=== PATIENT | female | born 1960 | race Caucasian/White ===

== ENCOUNTER → 2018-04-22 08:35 | Outpatient (CLI) | payer OTHER, SELFPAY ==
[2018-04-22 09:06] LABS: Add Manual Diff / Slide Review NO; Basophils Percent Auto 1.5 % (0-2); Eosinophils Percent Auto 3.3 % (2-4); Hematocrit 37.7 % (36-46); Hemoglobin 12.9 g/dL (12.0-16.0); Mean Corpuscular HGB Conc 34.3 % (30-36); Mean Corpuscular Hemoglobin 29.6 PG (26-34); Mean Corpuscular Volume 86.2 fL (80-100); Monocytes Percent Auto 9.4 % (3-14); Neutrophils Absolute Auto 2400 /uL (3000-5900); Neutrophils Percent Auto 42.8 % (50-75); Platelet Count 220 X10^3/uL (150-400); Red Blood Cell Count 4.37 X10^6/uL (4.0-5.2); Red Cell Distribution Width 13.7 % (11.6-14.8); White Blood Cell Count 5.6 X10^3/uL (4.5-11.0)
[2018-04-22 09:25] LABS: BUN Creatinine Ratio 17.5 (6-22); Blood Urea Nitrogen 14 mg/dL (7-17); Calcium 9.5 mg/dL (8.4-10.2); Carbon Dioxide 32 mmol/L (22-32); Chloride 105 mmol/L (98-107); Cholesterol 217 mg/dL (140-199); Estimated Glomerular Filt Rate > 60.0 mL/min (>60); Glucose 93 mg/dL (70-100); HDL Cholesterol 68 mg/dL (40-60); HEMOLYSIS < 15 (0-50); LDL Cholesterol Calculated 129 mg/dL (<100); Potassium 4.3 mmol/L (3.4-5.1); Sodium 144 mmol/L (137-145); Triglycerides 98 mg/dL (35-150)
[2018-04-22 16:10] LABS: TSH w/ Reflex to FT4 4.28 uIU/mL (0.47-4.68)
== END ==
PROVIDERS: PCP Internal Medicine; Visit Provider Internal Medicine
DX: Z00.00 Encounter for general adult medical examination without abnormal findings (principal); D50.9 Iron deficiency anemia, unspecified; E03.9 Hypothyroidism, unspecified
CPT/HCPCS: 36415; 80048; 80061; 84443; 85025

== ENCOUNTER 2018-06-17 09:57 | Day surgery (SDC) | payer OTHER, SELFPAY ==
[2018-06-13 09:50] VITALS: BMI 22.9
--- NOTE | 2018-06-17 | PATH_ITS ---
[facility] Accession Number: [id number] . 01 Material submitted: . PART A: LEEP EXTERNAL 12 O'CLOCK PART B: LEEP INTERNAL PART C: ENDOCERVICAL . 01 Clinical history: . A. 12 O'CLOCK SUTURE (PER CONTAINER) . 02 Diagnosis: A. Cervix, LEEP External 12 o'clock: Endocervical tissue with changes consistent with previous instrumentation. Negative for dysplasia and malignancy. Margins are negative for dysplasia and malignancy. No well-preserved transformation zone identified; tissue disruption is present. . B. Cervix, LEEP Internal: Endocervical tissue with changes consistent with previous instrumentation. Negative for dysplasia and malignancy. Margins are negative for dysplasia and malignancy. No well-preserved transformation zone identified; tissue disruption is present. . C. Endocervical: Endocervical glandular epithleium; negative for glandular dysplasia and malignancy. MRV/06/20/2018 . 02 Comment: This patient's previous biopsy ([facility] [id number], 05/04/2018) is reviewed and the severely dysplastic cells present in the previous biopsy are not identified in the current biopsy tissue. . 02 Electronically signed: . Juanis Akhtar MD, Pathologist NPI- [id number] . 01 Gross description: . (A) Received in formalin, labeled LEEP external 12 o'clock suture, is a cervical LEEP biopsy (1.9 cm 12 o'clock to 6 o'clock, 2.1 cm 3 o'clock to 9 o'clock, 1.2 cm superficial to deep) oriented with a two-tailed black suture indicating 12 o'clock. The mucosa is bright pink and focally red-brown, smooth and shiny. The resection margin is pale bess and finely granular. No nodules, masses or lesions are identified. Ink code: black-deep; blue-lateral; orange-os/endocervical canal. Section code: radially sectioned and entirely submitted clockwise from 12 o'clock -(A1) 12 o'clock to 3 o'clock; (A2) 3 o'clock to 6 o'clock; (A3) 6 o'clock to 9 o'clock; (A4) 9 o'clock to 12 o'clock). (B) Received in formalin, labeled LEEP internal is an unoriented cervical LEEP biopsy (diameter-1.5 x 1.3 cm, superficial to deep-0.7 cm) with bess-pink smooth shiny mucosa and a pale bess finely granular resection margin. No nodules, masses or lesions are identified. Ink code: black-deep; blue-lateral; orange-os/endocervical canal. Radially sectioned and entirely submitted in cassettes B1-B2. (C) Received in formalin, labeled endocervical, are multiple fragments of red-brown tissue (1.5 x 0.9 x 0.1 cm in aggregate). Filtered and entirely submitted in cassette C1. ([id number]) /MRV . 02 Pathologist provided ICD-10: N87.1 . 02 CPT . 162335, 367162, 067531 Performed at: 01 [facility] [address] [id number] MD Aristides Daugherty MD Phone: [phone] Performed at: 02 [facility] [address] [place] [id number] MD Sharda Sorensen MD Phone: [phone]
[2018-06-17 10:19] VITALS: BP 101/68; PULSE 68; RESP 15; TEMP 36.7; O2SAT 99; BMI 23.4
[2018-06-17] MEDS: LACTATED RINGERS 1,000 ML 100 ML IV (10:33)
--- NOTE | 2018-06-17 11:20 | PM.PREOP ---
Pre-operative Note Interval Note Pre-op Check: Yes History & Physical Reviewed by Physician and Yes Exam Performed Changes: No
--- NOTE | 2018-06-17 11:26 | P.HPOB_ITS ---
History of Present Illness Reason for admission: other (FANY 2 of the cervix) Narrative: Kristina Ahn is a 57 year old female with FANY 2 of the cervix here for colposcopy [facility] Medical History Anxiety and depression (Acute) Herpes labialis (Acute) Hypothyroidism (Acute) Iron deficiency anemia (Acute) Retinal detachment (Acute ~1993) Retinal detachment (Acute ~1984) Surgical History History of photorefractive keratectomy (PRK) (Acute ~1992) History of surgical removal of ganglion cyst (Acute ~2014) S/P endometrial ablation (Acute ~2009) Social History household members: none Smoking Status: Never smoker alcohol intake: current Meds Home Medications Medication Instructions Recorded Confirmed Type ascorbate calcium 500 mg tablet 1 gram PO Q6H 05/03/18 06/17/18 History citalopram 10 mg tablet 10 mg PO DAILY 05/03/18 06/17/18 History levothyroxine 25 mcg tablet 0.088 mcg PO DAILY tab 05/03/18 06/17/18 History cholecalciferol (vitamin D3) 1,000 unit PO DAILY 06/17/18 06/17/18 History [Vitamin D3] Allergies Allergy/AdvReac Type Severity Reaction Status Date / Time No Known Drug Allergies Allergy Verified 06/17/18 10:11 Review of Systems Review of Systems All systems reviewed & are unremarkable except as noted in HPI and below Exam Vital Signs (past 8 hours): - 06/17/18 10:19 Temperature 98.1 F Pulse Rate 68 Respiratory Rate 15 Blood Pressure 101/68 Pulse Oximetry 99 Oxygen Delivery Method Room Air Narrative Exam Narrative: HEENT exam within normal limits. Lungs are clear to auscultation and percussion. Heart is regular rate and rhythm no S3-S4 or murmurs. Abdomen is soft nontender. Repeat pelvic exam was not performed today but normal external genitalia, vagina, cervix. Uterus was not enlarged, nontender no adnexal masses or tenderness at her previous exam. Extremities without edema. Assessment & Plan (1) FANY II (cervical intraepithelial neoplasia II): Current visit: Yes Status: Acute Plan: Assessment/Plan Narrative: Patient is to undergo a LEEP procedure. She had signed a consent form prior understands the risks are minimal. Bleeding, pain, infection. Time Spent With Patient Time with patient: less than 15 minutes
[2018-06-17 11:42] VITALS: BMI 23.4
[2018-06-17 11:43] VITALS: BMI 23.4
--- NOTE | 2018-06-17 11:55 | SUR.OPER ---
Lithotomy on padded OR bed, head on pillow, arms secured on padded arm boards at <90 degrees abduction. Legs secured in padded yellow fins stirrups.
[2018-06-17] MEDS: POTASSIUM IODIDE/IODINE 473 ML SOLUTION TOP (12:05)
[2018-06-17] MEDS: LIDOCAINE 1% W/EPI INJ 20 ML INJ (12:05)
[2018-06-17 12:17] VITALS: BP 96/50; PULSE 77; RESP 15; TEMP 36.2; O2SAT 100
--- NOTE | 2018-06-17 12:17 | PM.OP.1 ---
Operative Date/Time/Diagnoses Date of procedure: 06/17/18 Time of procedure: 12:17 Pre-op diagnosis: FANY 2 of the cervix Post-op diagnosis: same Procedure & Clinicians Procedure: LEEP procedure with ECC Same procedure as scheduled: Yes Indications: FANY 2 of the cervix Surgeon: Trinidad Dover Click Yes if Unassisted: Yes Anesthesia Type: General Operative Notes Findings: Normal exam under anesthesia. There was no areas of nonstaining with Lugol's. Closure Type: not applicable Specimen(s): other (External LEEP biopsy, internal LEEP and ECC) Estimated Blood Loss (mL): 5 Blood products transfused: none Procedure in detail: Patient was brought to the operating room where she underwent general anesthesia. She was placed in low Yellofin stirrups and prepped and draped in the usual sterile fashion. A check system was reviewed with the staff in the room. Hi filter mass were worn by the staff in the room. No antibiotics were indicated. Warming was with blankets. Pulsatile stockings were in place and functional. A coated speculum was placed in the vagina. Lugol's was placed on the cervix. No staining was seen. The LEEP sent at 60 w of cutting and 40 w of coag was used to remove the entire squamocolumnar junction externally and then a deep section. The 12 o'clock position of the external LEEP was marked with a suture. ECC was performed. The cervix was treated with coagulation even outside of the LEEP margin. Adequate hemostasis was noted. Monsel's was placed at the LEEP base. Counts of instruments and sponges were correct. Patient went to recovery room in good condition. Complications: none Condition: stable Disposition: same day surgery Plan for aftercare: Home when awake and stable. Follow-up will be based on pathology report
[2018-06-17 12:21] VITALS: BP 98/48; PULSE 80; RESP 14; O2SAT 97
[2018-06-17 12:26] VITALS: BP 103/54; PULSE 80; RESP 12; O2SAT 99
[2018-06-17 12:31] VITALS: BP 116/65; PULSE 82; RESP 14; TEMP 36; O2SAT 99
--- NOTE | 2018-06-17 12:35 | SUR.PHASEI ---
Frequent questions, many repetitive.
[2018-06-17 12:45] VITALS: BP 119/75; PULSE 76; RESP 15; TEMP 36.4; O2SAT 95
--- NOTE | 2018-06-17 13:51 | SUR.PHASEII ---
iv dc'd by nicolás still
== END 2018-06-17 12:55 | disposition home or self-care (01) ==
PROVIDERS: Family Provider Internal Medicine; PCP Internal Medicine; Visit Provider Specialist
PROC: 0UBC7ZZ Excision of Cervix, Via Natural or Artificial Opening (ICD-10-PCS; CPT 57522; principal; 2018-06-17 11:15)
DX: F41.9 Anxiety disorder, unspecified (principal); F33.41 Major depressive disorder, recurrent, in partial remission; E03.9 Hypothyroidism, unspecified; D64.9 Anemia, unspecified
CPT/HCPCS: 57522; J1100; J1885; J2250; J2405; J2704; J3010

== ENCOUNTER → 2018-08-26 12:25 | Outpatient (CLI) | payer OTHER, SELFPAY ==
--- NOTE | 2018-08-26 | DI.MG.S_ITS ---
BILATERAL DIGITAL SCREENING MAMMOGRAM 3D/2D WITH CAD: 08/26/2018 CLINICAL: Routine screening. Family history of breast cancer. Comparison is made to exams dated: 07/28/2017 mammogram - [facility], 05/24/2015 mammogram, and 06/23/2016 mammogram - [facility]. There are scattered fibroglandular elements in both breasts. Current study was also evaluated with a Computer Aided Detection (CAD) system. No significant masses, calcifications, or other findings are seen in either breast. There has been no significant interval change. IMPRESSION: NEGATIVE There is no mammographic evidence of malignancy. A 1 year screening mammogram is recommended. This exam was interpreted at Station ID: [id number]. NOTE: For mammograms, a report in lay terms will be sent to the patient. Approximately 15% of breast malignancies will not be visualized mammographically. In the management of a palpable breast mass, a negative mammogram must not discourage biopsy of a clinically suspicious lesion. Electronically Signed By: Yaquelin mattson/edson:08/26/2018 15:11:49 letter sent: Normal Exam ACR BI-RADS Category 1: Negative 3341F
== END ==
PROVIDERS: PCP Internal Medicine; Visit Provider Internal Medicine
DX: Z12.31 Encounter for screening mammogram for malignant neoplasm of breast (principal); Z80.3 Family history of malignant neoplasm of breast
CPT/HCPCS: 77063; 77067

== ENCOUNTER → 2019-04-14 09:58 | Outpatient (CLI) | payer OTHER, SELFPAY ==
[2019-04-14 11:48] LABS: BUN Creatinine Ratio 16.3 (6-22); Blood Urea Nitrogen 13 mg/dL (7-17); Calcium 9.5 mg/dL (8.4-10.2); Carbon Dioxide 29 mmol/L (22-32); Chloride 103 mmol/L (98-107); Cholesterol 214 mg/dL (140-199); Estimated Glomerular Filt Rate > 60.0 mL/min (>60); Glucose 92 mg/dL (70-100); HDL Cholesterol 69 mg/dL (40-60); HEMOLYSIS < 15 (0-50); LDL Cholesterol Calculated 125 mg/dL (<100); Potassium 4.4 mmol/L (3.4-5.1); Sodium 140 mmol/L (137-145); Triglycerides 100 mg/dL (35-150)
[2019-04-14 12:42] LABS: TSH w/ Reflex to FT4 3.89 uIU/mL (0.47-4.68)
== END ==
PROVIDERS: PCP Internal Medicine; Visit Provider Internal Medicine
DX: Z00.00 Encounter for general adult medical examination without abnormal findings (principal); E78.5 Hyperlipidemia, unspecified; E03.9 Hypothyroidism, unspecified
CPT/HCPCS: 36415; 80048; 80061; 84443

== ENCOUNTER → 2019-09-18 11:38 | Outpatient (CLI) | payer OTHER, SELFPAY ==
--- NOTE | 2019-09-18 | DI.MG.S_ITS ---
BILATERAL DIGITAL SCREENING MAMMOGRAM 3D/2D WITH CAD: 09/18/2019 CLINICAL: Routine screening. Family history of breast cancer. Comparison is made to exams dated: 08/26/2018 mammogram, 07/28/2017 mammogram - [facility], and 06/23/2016 mammogram - [facility]. There are scattered fibroglandular elements in both breasts. Current study was also evaluated with a Computer Aided Detection (CAD) system. No significant masses, calcifications, or other findings are seen in either breast. There has been no significant interval change. IMPRESSION: NEGATIVE There is no mammographic evidence of malignancy. A 1 year screening mammogram is recommended. This exam was interpreted at Station ID: [id number]. NOTE: For mammograms, a report in lay terms will be sent to the patient. Approximately 15% of breast malignancies will not be visualized mammographically. In the management of a palpable breast mass, a negative mammogram must not discourage biopsy of a clinically suspicious lesion. Electronically Signed By: Yaquelin mattson/edson:09/18/2019 17:03:29 letter sent: Normal Exam ACR BI-RADS Category 1: Negative 3341F
== END ==
PROVIDERS: PCP Internal Medicine; Referring Provider Internal Medicine; Visit Provider Internal Medicine
DX: Z12.31 Encounter for screening mammogram for malignant neoplasm of breast (principal); Z80.3 Family history of malignant neoplasm of breast
CPT/HCPCS: 77063; 77067

== ENCOUNTER → 2020-09-03 20:01 | Outpatient (ROUT) | payer OTHER, SELFPAY ==
[2020-09-03 20:14] LABS: Alanine Aminotransferase 19 IU/L (<35); Albumin 4.5 g/dL (3.5-5.0); Albumin Globulin Ratio 1.7 (1.0-2.8); Alkaline Phosphatase 65 U/L (38-126); Aspartate Aminotransferase 43 IU/L (14-36); BUN Creatinine Ratio 15.4 (6-22); Bilirubin Total 0.5 mg/dL (0.2-1.3); Blood Urea Nitrogen 12 mg/dL (7-17); Calcium 9.7 mg/dL (8.4-10.2); Carbon Dioxide 29 mmol/L (22-32); Chloride 104 mmol/L (98-107); Cholesterol 236 mg/dL (140-199); Estimated Glomerular Filt Rate > 60.0 mL/min (>60); Globulin 2.7 g/dL (1.7-4.1); Glucose 95 mg/dL (70-100); HDL Cholesterol 70 mg/dL (40-60); HEMOLYSIS < 15 (0-50); LDL Cholesterol Calculated 134 mg/dL (<100); Potassium 4.2 mmol/L (3.4-5.1); Sodium 138 mmol/L (137-145); Total Protein 7.2 g/dL (6.3-8.2); Triglycerides 158 mg/dL (35-150)
[2020-09-03 20:43] LABS: TSH w/ Reflex to FT4 2.76 uIU/mL (0.47-4.68)
== END ==
PROVIDERS: PCP Internal Medicine; Visit Provider Internal Medicine
DX: Z00.00 Encounter for general adult medical examination without abnormal findings (principal); E03.9 Hypothyroidism, unspecified
CPT/HCPCS: 80053; 80061; 84443

== ENCOUNTER → 2020-09-18 11:17 | Outpatient (CLI) | payer OTHER, SELFPAY ==
--- NOTE | 2020-09-18 11:18 | DI.MG.S_ITS ---
BILATERAL DIGITAL SCREENING MAMMOGRAM 3D/2D WITH CAD: 09/18/2020 CLINICAL: Routine screening. Family history of breast cancer. Comparison is made to exams dated: 09/18/2019 mammogram, 08/26/2018 mammogram, and 07/28/2017 mammogram - [facility]. There are scattered fibroglandular elements in both breasts. Current study was also evaluated with a Computer Aided Detection (CAD) system. No significant masses, calcifications, or other findings are seen in either breast. There has been no significant interval change. IMPRESSION: NEGATIVE There is no mammographic evidence of malignancy. A 1 year screening mammogram is recommended. This exam was interpreted at Station ID: [id number]. NOTE: For mammograms, a report in lay terms will be sent to the patient. Approximately 15% of breast malignancies will not be visualized mammographically. In the management of a palpable breast mass, a negative mammogram must not discourage biopsy of a clinically suspicious lesion. Electronically Signed By: Samanta vazquez/edson:09/18/2020 14:36:11 letter sent: Normal Exam ACR BI-RADS Category 1: Negative 3341F
== END ==
PROVIDERS: PCP Internal Medicine; Referring Provider Internal Medicine; Visit Provider Internal Medicine
DX: Z12.31 Encounter for screening mammogram for malignant neoplasm of breast (principal)
CPT/HCPCS: 77063; 77067

== ENCOUNTER → 2021-10-01 11:25 | Outpatient (CLI) | payer OTHER, SELFPAY ==
--- NOTE | 2021-10-01 | DI.MG.S_ITS ---
BILATERAL DIGITAL SCREENING MAMMOGRAM 3D/2D WITH CAD: 10/01/2021 CLINICAL: Routine screening. Family history of breast cancer. Comparison is made to exams dated: 09/18/2020 mammogram, 09/18/2019 mammogram, 08/26/2018 mammogram, and 07/28/2017 mammogram - [facility]. There are scattered fibroglandular elements in both breasts. Current study was also evaluated with a Computer Aided Detection (CAD) system. No significant masses, calcifications, or other findings are seen in either breast. There has been no significant interval change. IMPRESSION: NEGATIVE There is no mammographic evidence of malignancy. A 1 year screening mammogram is recommended. This exam was interpreted at Station ID: [id number]. NOTE: For mammograms, a report in lay terms will be sent to the patient. Approximately 15% of breast malignancies will not be visualized mammographically. In the management of a palpable breast mass, a negative mammogram must not discourage biopsy of a clinically suspicious lesion. Electronically Signed By: Stephan murcia/edson:10/01/2021 13:42:07 letter sent: Normal Exam ACR BI-RADS Category 1: Negative 3341F
== END ==
PROVIDERS: PCP Internal Medicine; Referring Provider Internal Medicine; Visit Provider Internal Medicine
DX: Z12.31 Encounter for screening mammogram for malignant neoplasm of breast (principal); Z80.3 Family history of malignant neoplasm of breast
CPT/HCPCS: 77063; 77067

== ENCOUNTER → 2022-10-08 12:06 | Outpatient (CLI) | payer OTHER, SELFPAY ==
--- NOTE | 2022-10-08 12:08 | DI.MG.S_ITS ---
BILATERAL DIGITAL SCREENING MAMMOGRAM 3D/2D WITH CAD: 10/08/2022 CLINICAL: Routine screening. Family history of breast cancer. Comparison is made to exams dated: 10/01/2021 mammogram, 09/18/2020 mammogram, and 09/18/2019 mammogram - [facility]. There are scattered areas of fibroglandular density in both breasts (category b / 25%-50% glandular tissue). Current study was also evaluated with a Computer Aided Detection (CAD) system. There are benign calcifications in both breasts. No significant masses, calcifications, or other findings are seen in either breast. There has been no significant interval change. IMPRESSION: BENIGN There is no mammographic evidence of malignancy. A 1 year screening mammogram is recommended. Based on the Tyrer Cuzick model (a risk assessment model) the patient's lifetime risk is 18.2% and her 10 year risk is 7.8%. According to the ACR, ACS, and NCCN guidelines, an annual breast MRI exam along with mammogram is recommended if the patient's lifetime risk is 20% or greater. This exam was interpreted at Station ID: [id number]. NOTE: For mammograms, a report in lay terms will be sent to the patient. Approximately 15% of breast malignancies will not be visualized mammographically. In the management of a palpable breast mass, a negative mammogram must not discourage biopsy of a clinically suspicious lesion. Electronically Signed By: Wilfredo menendez/edson:10/08/2022 16:01:30 letter sent: Normal Exam ACR BI-RADS Category 2: Benign Finding(s) 3342F
== END ==
PROVIDERS: PCP Internal Medicine; Referring Provider Internal Medicine; Visit Provider Internal Medicine
DX: Z12.31 Encounter for screening mammogram for malignant neoplasm of breast (principal); Z80.3 Family history of malignant neoplasm of breast
CPT/HCPCS: 77063; 77067

== ENCOUNTER → 2023-10-12 09:13 | Outpatient (CLI) | payer OTHER, SELFPAY ==
--- NOTE | 2023-10-12 09:14 | DI.MG.S_ITS ---
BILATERAL DIGITAL SCREENING MAMMOGRAM 3D/2D WITH CAD: 10/12/2023 CLINICAL: Routine screening. Family history of breast cancer. Comparison is made to exams dated: 10/08/2022 mammogram, 10/01/2021 mammogram, and 09/18/2020 mammogram - [facility]. There are scattered areas of fibroglandular density in both breasts (category b / 25%-50% glandular tissue). Current study was also evaluated with a Computer Aided Detection (CAD) system. There are benign calcifications in the left breast. No significant masses, calcifications, or other findings are seen in either breast. There has been no significant interval change. IMPRESSION: BENIGN There is no mammographic evidence of malignancy. A 1 year screening mammogram is recommended. Based on the Tyrer Cuzick model (a risk assessment model) the patient's lifetime risk is 17.7% and her 10 year risk is 7.9%. According to the ACR, ACS, and NCCN guidelines, an annual breast MRI exam along with mammogram is recommended if the patient's lifetime risk is 20% or greater. This exam was interpreted at Station ID: [id number]. NOTE: For mammograms, a report in lay terms will be sent to the patient. Approximately 15% of breast malignancies will not be visualized mammographically. In the management of a palpable breast mass, a negative mammogram must not discourage biopsy of a clinically suspicious lesion. Electronically Signed By: Samanta vazquez/edson:10/12/2023 17:32:06 letter sent: Normal Exam ACR BI-RADS Category 2: Benign Finding(s) 3342F
== END ==
LOC: MAMMO 09:14
PROVIDERS: PCP Internal Medicine; Referring Provider Internal Medicine; Visit Provider Internal Medicine
DX: Z12.31 Encounter for screening mammogram for malignant neoplasm of breast (principal); Z80.3 Family history of malignant neoplasm of breast; R92.323 Mammographic fibroglandular density, bilateral breasts
CPT/HCPCS: 77063; 77067

== ENCOUNTER → 2024-10-16 08:26 | Outpatient (CLI) | payer OTHER, SELFPAY ==
--- NOTE | 2024-10-16 08:27 | DI.MG.S_ITS ---
MM screening mammo BI: 10/16/2024. BI-RADS: 1 CLINICAL: 63-year old female for bilateral screening mammogram. Tyrer-Cuzick lifetime risk of 11.5%. Current reported family history of breast cancer: mother and maternal aunt. PRIOR EXAMS 10/12/2023, 10/08/2022, 10/01/2021, 09/18/2020, 09/18/2019, 08/26/2018, 07/28/2017. MAMMOGRAPHY TECHNIQUE: 2D and 3D (tomosynthesis) digital mammographic views obtained, with additional images as needed for full coverage. Current study was also evaluated with a Computer Aided Detection (CAD) system. DENSITY B. There are scattered areas of fibroglandular density. MAMMOGRAPHY FINDINGS Bilateral: No suspicious mass, asymmetry, microcalcification, or other abnormality seen. No significant change from comparison. IMPRESSION: * No evidence of malignancy. RECOMMENDATIONS Bilateral * Annual screening mammography. OVERALL ASSESSMENT CATEGORY BI-RADS-1: Negative. The [employer] recommends annual screening mammography beginning at age 40 for women with average risk of breast cancer. ELECTRONICALLY SIGNED: Renee Nichols M.D. on 10/17/2024 at 08:46:06 AM PT Interpreting Station ID: [id number]
== END ==
LOC: MAMMO 08:27
PROVIDERS: PCP Family Medicine; Referring Provider Family Medicine; Visit Provider Family Medicine
DX: Z12.31 Encounter for screening mammogram for malignant neoplasm of breast (principal); Z80.3 Family history of malignant neoplasm of breast
CPT/HCPCS: 77063; 77067

== ENCOUNTER 2024-11-15 20:29 | Inpatient (IN) | payer OTHER, SELFPAY ==
[2024-11-15] VITALS (9 sets, daily range): BP systolic 102–124; BP diastolic 56–63; PULSE 77–101; RESP 14–18; TEMP 36.6–37.3; O2SAT 91–94; BMI 23.0
--- NOTE | 2024-11-15 20:33 | EKG_ITS ---
[address] [address] Test Date: 2024-11-15 Pat Name: Kristina Ahn Department: Room: Gender: Female Radiology Orderly: JULISA : 1960 Requested By: Order Number: [id number] Reading MD: Raudel Gruber MD Measurements Intervals [place] Rate: 93 P: 34 WY: 132 QRS: 30 QRSD: 82 T: 14 QT: 340 QTc: 422 Interpretive Statements Normal sinus rhythm Electronically Signed On 11-16-2024 7:41:58 PDT by Raudel Gruber MD
--- NOTE | 2024-11-15 20:33 | ED.GENADULT ---
HPI - General Adult General Chief complaint: Fever Stated complaint: sick Time Seen by Provider: 11/15/24 20:31 History of Present Illness HPI narrative: 63-year-old female with a past medical history of hypothyroidism presenting from home via EMS for evaluation of fever chills nausea and vomiting and low blood pressure, according to the patient she was feeling chills feeling sick has been ongoing persistent for the past 2 weeks did have abdominal pain nausea and vomiting but no headache visual disturbances chest pain shortness of breath or any other GI/ symptoms time. EMS states that when they arrived patient's blood pressure was low systolics in the 90s, at time of evaluation here patient with normotensive blood pressure map 72. Patient states that she has been feeling ?crummy. Related Data Home Medications Medication Instructions Recorded Confirmed ascorbate calcium (vitamin C) 500 1 gram PO Q6H 05/03/18 06/17/18 mg tablet citalopram 10 mg tablet 10 mg PO DAILY 05/03/18 06/17/18 cholecalciferol (vitamin D3) 25 1,000 unit PO DAILY 06/17/18 06/17/18 mcg (1,000 unit) capsule (Vitamin D3) levothyroxine 25 mcg tablet 88 mcg PO DAILY 09/05/20 09/05/20 Allergies Allergy/AdvReac Type Severity Reaction Status Date / Time No Known Drug Allergies Allergy Verified 11/15/24 20:33 Review of Systems Review of Systems Narrative: General: Positive fever, chills, HEENT: Denies headache, eye drainage, eye irritation, head trauma, sore throat, voice change Cardiovascular: Denies any chest pain, palpitations, tachycardia Respiratory: Denies any shortness of breath, cough, wheeze, stridor GI/: Positive abdominal pain, nausea, vomiting, denies diarrhea, bright red blood per rectum, melanotic stools, urinary frequency, urinary retention, dysuria, hematuria MSK: Denies any joint pain, muscle pains, swelling Skin: Denies any rashes, lesions, discoloration Neuro: Denies any headache, lightheadedness, dizziness, fainting, weakness Psych: Denies SI/HI Patient History Medical History Anxiety and depression Herpes labialis Hypothyroidism Iron deficiency anemia Retinal detachment (~1993) Retinal detachment (~1984) Surgical History History of photorefractive keratectomy (PRK) (~1992) History of surgical removal of ganglion cyst (~2014) S/P endometrial ablation (~2009) Social History household members: none Smoking Status: Never smoker alcohol intake: current alcohol intake frequency: a few times a week Exam Narrative Exam Narrative: General: Cooperative, well-developed, not in acute distress HEENT: Normocephalic, atraumatic, PERRLA, normal sclera, eyelids normal Neck: Active full range of motion, atraumatic Chest: Normal to inspection, negative crepitus, no overlying erythema ecchymosis Respiratory: Normal respiratory effort, not in acute respiratory distress, clear to auscultation bilaterally negative cough, wheeze, tachypnea, rhonchi, rales Cardiology: Regular rate rhythm negative gallop, murmur, rubs GI/: No tenderness to palpation, soft, non rigid, normal to inspection, exam deferred MSK: Full active range of motion in all 4 extremities, atraumatic, no tenderness to palpation of any bony prominences Skin: No rashes or lesions noted Neuro: Alert awake oriented x3, moves all 4 extremities spontaneously, cranial nerves intact, able to answer all questions appropriately follows commands appropriately Psych: Cooperative, negative suicidal or homicidal ideations Initial Vital Signs Initial Vital Signs: Vital Signs Pulse Rate 98 H 11/15/24 20:31 Pulse Oximetry 91 11/15/24 20:31 Course Orders Ordered: ED Orders 11/15/24 20:33 XR chest 1V Stat Urinalysis and Microscopic Stat EKG-12 Lead Stat 11/15/24 20:35 CT abdomen pelvis w con Stat Complete Blood Count AUTO DIFF Stat Comprehensive Metabolic Panel Stat Lactate (Lactic Acid) Stat Lipase Stat MAG [Magnesium] Stat Troponin & CK Cardiac Panel Stat 11/15/24 20:45 Covid-19 + FLU A/B + RSV - PCR Stat 11/15/24 20:50 Blood Culture Stat 11/15/24 21:24 CT angio chest PE protocol Stat Discontinued Medications Sodium Chloride (Normal Saline 0.9%) 1,000 mls @ 1,000 mls/hr IV BOLUS ONE Stop: 11/15/24 21:32 Last Infusion: 11/15/24 22:05 Dose: Infused Documented By: Admin: 11/15/24 20:48 Dose: 1,000 mls/hr Documented By: MING Ceftriaxone Sodium 2,000 mg/ (Sodium Chloride) 100 mls @ 200 mls/hr IV NOW ONE Stop: 11/15/24 21:48 Last Admin: 11/15/24 22:09 Dose: 200 mls/hr Documented By: MING Doxycycline Hyclate 100 mg/ (Sodium Chloride) 100 mls @ 100 mls/hr IV NOW ONE Stop: 11/15/24 21:48 Vital Signs Vital signs: Vital Signs - 8 hr 11/15/24 20:31 11/15/24 20:32 11/15/24 20:32 Temperature Pulse Rate 98 H 97 H Respiratory Rate Blood Pressure 113/56 L Pulse Oximetry 91 91 Oxygen Delivery Method 11/15/24 20:33 11/15/24 21:00 11/15/24 21:00 Temperature 99.1 F Pulse Rate 92 H 80 Respiratory Rate 18 16 Blood Pressure 113/56 L 102/56 L Pulse Oximetry 91 94 Oxygen Delivery Method Room Air 11/15/24 21:35 11/15/24 21:38 11/15/24 21:38 Temperature Pulse Rate 87 84 Respiratory Rate 18 14 Blood Pressure 124/60 Pulse Oximetry 93 93 Oxygen Delivery Method Medical Decision Making Differential Diagnosis Differential Diagnosis: ACS, pneumonia, electrolyte abnormality, urinary tract infection, COVID, Lab Data 11/15/24 20:35 11/15/24 20:35 Labs: Lab Results 11/15/24 11/15/24 Range/Units 20:35 20:45 WBC 10.6 (4.5-11.0) X10^3/uL RBC 4.10 (4.0-5.2) X10^6/uL Hgb 12.1 (12.0-16.0) g/dL Hct 34.7 L (36-46) % MCV 84.6 (80-100) fL MCH 29.5 (26-34) PG MCHC 34.9 (30-36) % RDW 13.7 (11.6-14.8) % Plt Count 292 (150-400) X10^3/uL Neut % (Auto) 85.3 H (50-75) % Lymph % (Auto) 6.1 L (25-40) % [place] % (Auto) 6.4 (3-14) % Eos % (Auto) 1.7 L (2-4) % Baso % (Auto) 0.5 (0-2) % Neut # (Auto) 9000 H (8546-8513) /uL Lymph # (Auto) 600 L (5079-0738) /uL [place] # (Auto) 700 (0-900) /uL Eos # (Auto) 200 (0-450) /uL Baso # (Auto) 100 (0-100) /uL Sodium 132 L (137-145) mmol/L Potassium 4.4 (3.4-5.1) mmol/L Chloride 100 (98-107) mmol/L Carbon Dioxide 22 (22-32) mmol/L BUN 15 (7-17) mg/dL Creatinine 1.00 (0.52-1.04) mg/dL Estimated GFR > 60 (>60) mL/min BUN/Creatinine Ratio 15.0 (6-22) Glucose 117 H (70-99) mg/dL Lactate 1.1 (0.7-2.1) mmol/L Calcium 8.9 (8.4-10.2) mg/dL Magnesium 1.7 (1.6-2.3) mg/dL Total Bilirubin 0.8 (0.2-1.3) mg/dL AST 85 H (14-36) IU/L ALT 109 H (<35) IU/L Alkaline Phosphatase 272 H (38-126) U/L Total Creatine Kinase 40 (30-135) U/L Troponin I < 0.012 (0.01-0.034) ng/mL Total Protein 6.5 (6.3-8.2) g/dL Albumin 3.6 (3.5-5.0) g/dL Globulin 2.9 (1.7-4.1) g/dL Albumin/Globulin Ratio 1.2 (1.0-2.8) Lipase 67 (23-300) U/L SARS-CoV-2 (PCR) Negative (Negative) Influenza A (RT-PCR) Flu a negative (NEGATIVE) Influenza B (RT-PCR) Flu b negative (NEGATIVE) RSV (PCR) Negative (Negative) Imaging Data Chest x-ray: Radiologist's Impression: [address] [address] XRay Report Signed Patient: Kristina Ahn MR#: [id number] : 1960 Acct:[id number] Age/Sex: 63 / F Date of Service: 11/15/24 Loc: ED Accession Number: [id number] Procedure: XR chest 1V Ordering Provider: Danny Barger D.O. PROCEDURE: XR CHEST 1V INDICATIONS: weakness TECHNIQUE: One view of the chest was acquired. COMPARISON: None. FINDINGS: Surgical changes and devices: None. Lungs and pleura: ill-defined airspace opacities are noted in right lower lung field. Blunting of right costophrenic angle is also seen. Left lung is clear. No pneumothorax. Mediastinum: Mediastinal contours appear normal. Heart size is normal. Bones and chest wall: No suspicious bony lesions. Overlying soft tissues appear unremarkable. IMPRESSION: Suggestion of small right pleural effusion with right basilar infiltrate/atelectasis. Left lung is clear. No pneumothorax. CT scan - abdomen/pelvis: Radiologist's Impression: [place] [address] CT Scan Report Signed Patient: Kristina Ahn MR#: [id number] : 1960 Acct:[id number] Age/Sex: 63 / F Date of Service: 11/15/24 Loc: ED Accession Number: [id number] Procedure: CT abdomen pelvis w con Ordering Provider: Danny Barger D.O. PROCEDURE: CT ABDOMEN PELVIS W CON INDICATIONS: abd pain TECHNIQUE: After the administration of intravenous contrast, axial sections acquired from the lung bases to the pubic symphysis. Coronal and sagittal reformats were performed. For radiation dose reduction, the following was used: automated exposure control, adjustment of mA and/or kV according to patient size. COMPARISON: None. FINDINGS: Image quality: Diagnostic. ABDOMEN: Liver: No solid mass. Gallbladder: No radiopaque gallstones or wall thickening. Biliary ducts: No biliary dilation. Pancreas: No ductal dilation. Spleen: Size is within normal limits. Adrenal Glands: No adrenal nodules. Kidneys and Ureters: No hydronephrosis. No solid mass. No complex renal cystic lesion which requires follow up. Stomach and Bowel: Normal colonic caliber, without significant wall thickening. Peritoneum: No abnormal intraperitoneal fluid. No free air. Ventral Wall: No significant ventral hernia. Abdominal Nodes: No retroperitoneal or mesenteric adenopathy by size criteria. Vessels: Aorta and inferior vena cava are normal in size. PELVIS: Pelvic Organs: Unremarkable. Bladder: No bladder wall thickening, accounting for underdistention. Pelvic Nodes: No enlarged lymph nodes. Miscellaneous: No inguinal hernias are seen. Bones: No aggressive osseous abnormality. IMPRESSION: 1. No acute intra-abdominal abnormality seen. 2. Please refer also to report of study of the chest performed the same day for additional findings. CTA chest: Radiologist's Impression: [address] [address] [address] Scan Report Signed Patient: Kristina Ahn MR#: [id number] : 1960 Acct:[id number] Age/Sex: 63 / F Date of Service: 11/15/24 Loc: ED Accession Number: [id number] Procedure: CT angio chest PE protocol Ordering Provider: Danny Barger D.O. PROCEDURE: CT ANGIO CHEST PE PROTOCOL INDICATIONS: hypoxemia TECHNIQUE: After the administration of intravenous contrast, 2 mm thick sections acquired from the pulmonary apices to the posterior costophrenic angles. 3-dimensional maximum intensity projection (MIP) coronal and sagittal reformats were then acquired through the thorax. For radiation dose reduction, the following was used: automated exposure control, adjustment of mA and/or kV according to patient size. COMPARISON: None. FINDINGS: Image quality: Diagnostic. Pulmonary arteries: Pulmonary arteries are normal in size, and demonstrate no intraluminal filling defects to suggest central pulmonary embolism. Lower Neck: No enlarged lymph nodes. Thyroid: No thyroid nodules which require sonographic follow up, per consensus guidelines. Axillae: No enlarged lymph nodes. Chest Wall: Unremarkable. Bones: Unremarkable. Lungs and Pleura: No pneumothorax or pleural effusions. Very large area of nonenhancing consolidation seen in the central and deep in the regions of the right lower lobe, with some ground-glass density more superiorly. Heart: Heart size is normal. No pericardial effusion. Thoracic Vessels: No aortic aneurysm. Mediastinum and Sayda: Mildly enlarged right hilar nodes, likely reactive. Esophagus: No wall thickening. No hiatal hernia. Upper Abdomen: Visualized upper abdomen solid organs and bowel loops appear normal. IMPRESSION: No pulmonary embolus. Very large right lower lobe consolidation, most likely due to pneumonia or aspiration. No pleural effusion seen. ECG Data Interpretation: EKG interpreted by ED physician sinus 93 beats per minute QTC [address] changes no STEMI MDM Narrative Medical decision making narrative: 63-year-old female with a past medical history of hypothyroidism presenting for multiple complaints, she states that she currently ?feels crummy she states that she called EMS because she was feeling shaky, states that she has been having flu-like symptoms abdominal pain nausea vomiting malaise ongoing persistent for the past 2 weeks, according to medics patient was hypotensive with systolics of 90s, here patient normotensive map 72, patient's EKG nonischemic in nature and had lab work imaging urinalysis performed here. Patient without any leukocytosis, CT scan of the abdomen without any acute findings, CTA chest showing very large right lower lobe consolidation consistent with pneumonia no pleural effusion, upon ambulation patient does drop down to 89% requiring oxygen, however while seated patient 93%, given patient with hypoxemia with ambulation in the setting of a pneumonia patient will be admitted to the hospital for IV antibiotics. The remainder of her lab work is unremarkable call placed to hospitalist for admission. Rocephin doxy ordered for pneumonia, patient did receive 1 L normal saline prior to arrival, patient has remained normotensive, no signs of sepsis at this time The patient's management plan was discussed Dr. Cho, who agrees to admit the patient to their service and assumes care of this patient at this time. Full admission orders will be placed by the primary team. Discharge Plan Departure Patient Disposition: Admitted As Inpatient Clinical Impression: Acute hypoxic respiratory failure, Pneumonia involving right lung
[2024-11-15] MEDS: SODIUM CHLORIDE 0.9% 1,000 ML 1000 ML IV (20:48)
[2024-11-15 20:51] LABS: Add Manual Diff / Slide Review NO; Basophils Absolute Auto 100 /uL (0-100); Basophils Percent Auto 0.5 % (0-2); Eosinophils Absolute Auto 200 /uL (0-450); Eosinophils Percent Auto 1.7 % (2-4); Hematocrit 34.7 % (36-46); Hemoglobin 12.1 g/dL (12.0-16.0); Lymphocytes Absolute Auto 600 /uL (1100-4500); Lymphocytes Percent Auto 6.1 % (25-40); Mean Corpuscular HGB Conc 34.9 % (30-36); Mean Corpuscular Hemoglobin 29.5 PG (26-34); Mean Corpuscular Volume 84.6 fL (80-100); Monocytes Absolute Auto 700 /uL (0-900); Monocytes Percent Auto 6.4 % (3-14); Neutrophils Absolute Auto 9000 /uL (1500-7000); Neutrophils Percent Auto 85.3 % (50-75); Platelet Count 292 X10^3/uL (150-400); Red Cell Distribution Width 13.7 % (11.6-14.8); White Blood Cell Count 10.6 X10^3/uL (4.5-11.0)
[2024-11-15 21:02] LABS: Lactate (Lactic Acid) 1.1 mmol/L (0.7-2.1)
[2024-11-15 21:03] LABS: Alanine Aminotransferase 109 IU/L (<35); Albumin 3.6 g/dL (3.5-5.0); Albumin Globulin Ratio 1.2 (1.0-2.8); Alkaline Phosphatase 272 U/L (38-126); Aspartate Aminotransferase 85 IU/L (14-36); Bilirubin Total 0.8 mg/dL (0.2-1.3); Blood Urea Nitrogen 15 mg/dL (7-17); Calcium 8.9 mg/dL (8.4-10.2); Carbon Dioxide 22 mmol/L (22-32); Chloride 100 mmol/L (98-107); Creatine Kinase 40 U/L (30-135); Estimated Glomerular Filt Rate > 60 mL/min (>60); Globulin 2.9 g/dL (1.7-4.1); Glucose 117 mg/dL (70-99); HEMOLYSIS < 15 (0-50); Lipase 67 U/L (23-300); Potassium 4.4 mmol/L (3.4-5.1); Sodium 132 mmol/L (137-145); Total Protein 6.5 g/dL (6.3-8.2)
[2024-11-15 21:04] LABS: Magnesium 1.7 mg/dL (1.6-2.3)
[2024-11-15 21:15] LABS: Troponin I < 0.012 ng/mL (0.01-0.034)
--- NOTE | 2024-11-15 21:24 | DI.CT.S_ITS ---
PROCEDURE: CT ANGIO CHEST PE PROTOCOL INDICATIONS: hypoxemia TECHNIQUE: After the administration of intravenous contrast, 2 mm thick sections acquired from the pulmonary apices to the posterior costophrenic angles. 3-dimensional maximum intensity projection (MIP) coronal and sagittal reformats were then acquired through the thorax. For radiation dose reduction, the following was used: automated exposure control, adjustment of mA and/or kV according to patient size. COMPARISON: None. FINDINGS: Image quality: Diagnostic. Pulmonary arteries: Pulmonary arteries are normal in size, and demonstrate no intraluminal filling defects to suggest central pulmonary embolism. Lower Neck: No enlarged lymph nodes. Thyroid: No thyroid nodules which require sonographic follow up, per consensus guidelines. Axillae: No enlarged lymph nodes. Chest Wall: Unremarkable. Bones: Unremarkable. Lungs and Pleura: No pneumothorax or pleural effusions. Very large area of nonenhancing consolidation seen in the central and deep in the regions of the right lower lobe, with some ground-glass density more superiorly. Heart: Heart size is normal. No pericardial effusion. Thoracic Vessels: No aortic aneurysm. Mediastinum and Sayda: Mildly enlarged right hilar nodes, likely reactive. Esophagus: No wall thickening. No hiatal hernia. Upper Abdomen: Visualized upper abdomen solid organs and bowel loops appear normal. IMPRESSION: No pulmonary embolus. Very large right lower lobe consolidation, most likely due to pneumonia or aspiration. No pleural effusion seen. Dictated by: Sharad Dutta M.D. on 11/15/2024 at 21:37 Approved by: Sharad Dutta M.D. on 11/15/2024 at 21:42
[2024-11-15 21:27] LABS: COVID-19 CEPHEID 4-PLEX PCR Negative (Negative); Influenza A - CEPHEID Flu A NEGATIVE (NEGATIVE); Influenza B - CEPHEID Flu B NEGATIVE (NEGATIVE); Respiratory Syncytial Virus Negative (Negative)
[2024-11-15] MEDS: cefTRIAXone 2,000 MG in SODIUM CHLORIDE 0.9% 100 ML 200 MG IV (22:09)
[2024-11-15] MEDS: ONDANSETRON 4 MG/2 ML INJ IV (22:52)
[2024-11-15] MEDS: DOXYCYCLINE 100 MG in SODIUM CHLORIDE 0.9% 100 ML IV (22:52)
--- NOTE | 2024-11-16 00:38 | PM.HP.1 ---
History of Present Illness History of Present Illness Chief complaint: sick Narrative: 63-year-old female with past medical history of depression, hypothyroidism, and vitamin D deficiency presents with subjective fever, chills, nausea and vomiting. Per the patient's report, over the last 2 weeks, the patient has been feeling ill. Last 4 to 5 days the patient started to have nausea and vomiting. The patient also reports of subjective fever and chills with some coughing. Patient did check her weight today and noted that it was more normal. The patient also have some abdominal discomfort but no specific pain. Otherwise the patient denies any imaging dysuria, hematuria, GI bleeding, chest pain or shortness of breath. In the emergency room, the patient initially was hemodynamically stable without sign of sepsis. WBC was 10. Sodium was 132. IV 1.1. AST 84 ALT 109 total bilirubin 0.8. Troponin less than 0.012. Lipase 67. Upper respiratory viral panel negative. CT scan of the chest with angio shows no PE but very large right lower lobe consolidation concerning for pneumonia or aspiration. The patient was given IV doxycycline and azithromycin. CT abdomen was negative. [facility] Medical History Anxiety and depression Herpes labialis Hypothyroidism Iron deficiency anemia Retinal detachment (~1993) Retinal detachment (~1984) Surgical History History of photorefractive keratectomy (PRK) (~1992) History of surgical removal of ganglion cyst (~2014) S/P endometrial ablation (~2009) Social History household members: children and none Smoking Status: Never smoker alcohol intake: current Meds Home Medications and Allergies Home Medications Medication Instructions Recorded Confirmed Type citalopram 10 mg tablet 10 mg PO DAILY 05/03/18 11/15/24 History levothyroxine 25 mcg tablet 88 mcg PO DAILY 09/05/20 11/15/24 History Allergies Allergy/AdvReac Type Severity Reaction Status Date / Time No Known Drug Allergies Allergy Verified 11/15/24 20:33 Review of Systems Review of Systems ROS: Yes All systems reviewed with the patient and are negative except as otherwise documented Exam Vital Signs (past 8 hours): - 11/15/24 20:31 11/15/24 20:32 11/15/24 20:32 Temperature Pulse Rate 98 H 97 H Respiratory Rate Blood Pressure 113/56 L Pulse Oximetry 91 91 Oxygen Delivery Method Oxygen Flow Rate 11/15/24 20:33 11/15/24 21:00 11/15/24 21:00 Temperature 99.1 F Pulse Rate 92 H 80 Respiratory Rate 18 16 Blood Pressure 113/56 L 102/56 L Pulse Oximetry 91 94 Oxygen Delivery Method Room Air Oxygen Flow Rate 11/15/24 21:35 11/15/24 21:38 11/15/24 21:38 Temperature Pulse Rate 87 84 Respiratory Rate 18 14 Blood Pressure 124/60 Pulse Oximetry 93 93 Oxygen Delivery Method Oxygen Flow Rate 11/15/24 22:07 11/15/24 22:30 11/15/24 23:10 Temperature 97.8 F Pulse Rate 101 H 77 95 H Respiratory Rate 18 Blood Pressure 116/63 Pulse Oximetry 94 93 94 Oxygen Delivery Method Nasal Cannula Nasal Cannula Oxygen Flow Rate 1 1 1 Oxygen Delivery Method Nasal Cannula Oxygen Flow Rate 1 Narrative Exam Narrative: Physical Exam: GENERAL: The patient is not in any acute distressed. Awake and alert. HEENT: Nonicteric sclerae, PERRLA, EOMI. Oropharynx clear. Moist mucous membranes. Conjunctivae appear well perfused. HEART: Regular rate and rhythm without murmurs. No lower extremities edema. LUNGS: Clear to auscultation bilaterally. No wheezing, crackles or rhonchi ABDOMEN: Soft, positive bowel sounds, nontender. SKIN: No rash, no excessive bruising, petechiae, or purpura. NEUROLOGIC: AxO x 3. Cranial nerves II-XII intact without motor/sensory deficit. Objective Labs 11/15/24 20:35 11/15/24 20:35 Labs: Laboratory Results - last 24 hr 11/15/24 11/15/24 20:35 20:45 WBC 10.6 RBC 4.10 Hgb 12.1 Hct 34.7 L MCV 84.6 MCH 29.5 MCHC 34.9 RDW 13.7 Plt Count 292 Neut % (Auto) 85.3 H Lymph % (Auto) 6.1 L [place] % (Auto) 6.4 Eos % (Auto) 1.7 L Baso % (Auto) 0.5 Neut # (Auto) 9000 H Lymph # (Auto) 600 L [place] # (Auto) 700 Eos # (Auto) 200 Baso # (Auto) 100 Sodium 132 L Potassium 4.4 Chloride 100 Carbon Dioxide 22 BUN 15 Creatinine 1.00 Estimated GFR > 60 BUN/Creatinine Ratio 15.0 Glucose 117 H Lactate 1.1 Calcium 8.9 Magnesium 1.7 Total Bilirubin 0.8 AST 85 H ALT 109 H Alkaline Phosphatase 272 H Total Creatine Kinase 40 Troponin I < 0.012 Total Protein 6.5 Albumin 3.6 Globulin 2.9 Albumin/Globulin Ratio 1.2 Lipase 67 SARS-CoV-2 (PCR) Negative Influenza A (RT-PCR) Flu a negative Influenza B (RT-PCR) Flu b negative RSV (PCR) Negative Assessment & Plan Assessment & Plan narrative: Community acquired pneumonia with possible aspiration. Admit the patient to medical telemetry. NPO. IV fluid. Switch to IV Zosyn and continue azithromycin. Swallow eval in the morning. Monitor for sepsis. Transaminitis. Normal bilirubin. Monitor for now and if not improved consider further workup. Mild hyponatremia. Likely due to dehydration. IV fluid and monitor sodium morning. Hypothyroidism. Resume home Synthroid. Depression. Resume home antidepressant. DVT prophylaxis heparin subcu. CODE STATUS full code. Disposition likely home 2 to 3 days - As the provider of this telehealth evaluation, requested by the patient's evaluating physician, I attest that I introduced myself to the patient, provided my credentials and determined that telemedicine via a real-time, 2 way interactive audio and video platform is an appropriate and effective means of providing this service. - I reviewed the patient's chart and had a discussion with the member of the patient's treatment team. - The patient and I mutually agreed with continuation of this evaluation via telemedicine. The patient consented for the telemedicine evaluation. - This virtual encounter was taken place from [place] by Dr. London Cho. The patient was evaluated at [facility]. The encounter was approximately 35 minutes. The nurse was present during the entire time of the encounter and was able to move the stethoscope in appropriate directions. Time-Based Coding :: [TOTAL MINUTES] spent with patient and on the chart (including review of chart, obtaining history, exam, reviewing outside data, placing orders, documenting exam and treatment plan, and counseling patient) on [DATE].
[2024-11-16 01:03] LABS: Appearance Urine UA CLEAR; Bilirubin Urine UA NEGATIVE (NEGATIVE); Color Urine UA YELLOW; Glucose Urine UA NEGATIVE (Negative); Ketones Urine UA 1+ (NEGATIVE); Leukocyte Esterase Urine UA NEGATIVE (NEGATIVE); Nitrite Urine UA NEGATIVE (Negative); Occult Blood Urine UA 1+ (Negative); Protein Urine UA NEGATIVE (Negative); Specific Gravity Urine UA <=1.005 (1.000-1.035); Urobilinogen Urine UA 0.2 E.U./dL (0.2)
[2024-11-16 01:08] LABS: pH Urine UA 6.5 (4.5-8.0)
[2024-11-16 01:10] LABS: Bacteria Urine Occasional (0-1); Culture Indicated Urine Cult Not Indicated; RBC Urine 5-10/HPF (0-5/HPF); Squamous Epithelial Cell Urine 0-1 /HPF (0-5/HPF); Urine Volume 10mL (spun); WBC Urine None Seen (0-5/HPF)
[2024-11-16] MEDS: PIPERACILLIN/TAZO 3.375 GM in SODIUM CHLORIDE 0.9% 100 ML IV ×3 (01:10→16:16)
[2024-11-16] MEDS: SODIUM CHLORIDE 0.9% 1,000 ML 100 ML IV ×2 (01:10→16:14)
[2024-11-16] MEDS: TRAZODONE 50 MG TABLET PO ×2 (01:10→21:26)
[2024-11-16 04:00] VITALS: BP 102/57; PULSE 80; RESP 20; TEMP 36.7; O2SAT 92
[2024-11-16] MEDS: LEVOTHYROXINE 88 MCG TABLET PO (05:38)
[2024-11-16] MEDS: ACETAMINOPHEN 325 MG TABLET 650 MG PO ×3 (05:50→21:26)
[2024-11-16 06:06] LABS: Add Manual Diff / Slide Review NO; Basophils Absolute Auto 100 /uL (0-100); Basophils Percent Auto 0.7 % (0-2); Eosinophils Absolute Auto 100 /uL (0-450); Eosinophils Percent Auto 0.7 % (2-4); Hematocrit 33.2 % (36-46); Hemoglobin 11.5 g/dL (12.0-16.0); Lymphocytes Absolute Auto 900 /uL (1100-4500); Lymphocytes Percent Auto 9.8 % (25-40); Mean Corpuscular HGB Conc 34.6 % (30-36); Mean Corpuscular Hemoglobin 29.3 PG (26-34); Mean Corpuscular Volume 84.8 fL (80-100); Monocytes Absolute Auto 700 /uL (0-900); Monocytes Percent Auto 7.5 % (3-14); Neutrophils Absolute Auto 7600 /uL (1500-7000); Neutrophils Percent Auto 81.3 % (50-75); Platelet Count 285 X10^3/uL (150-400); Red Blood Cell Count 3.92 X10^6/uL (4.0-5.2); Red Cell Distribution Width 13.4 % (11.6-14.8); White Blood Cell Count 9.4 X10^3/uL (4.5-11.0)
[2024-11-16 06:13] LABS: BUN Creatinine Ratio 15.1 (6-22); Blood Urea Nitrogen 13 mg/dL (7-17); Calcium 8.3 mg/dL (8.4-10.2); Carbon Dioxide 25 mmol/L (22-32); Chloride 103 mmol/L (98-107); Estimated Glomerular Filt Rate > 60 mL/min (>60); Glucose 95 mg/dL (70-99); HEMOLYSIS < 15 (0-50); Potassium 4.3 mmol/L (3.4-5.1); Sodium 137 mmol/L (137-145)
--- NOTE | 2024-11-16 06:21 | PC.NURSE ---
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
[2024-11-16 08:00] VITALS: BP 98/50; PULSE 91; RESP 17; TEMP 36.8; O2SAT 92; O2SAT 93
[2024-11-16] MEDS: AZITHROMYCIN 500 MG in DEXTROSE 5% IN WATER 250 ML 250 MG IV (08:29)
[2024-11-16] MEDS: SODIUM CHLORIDE 0.9% FLUSH 10 ML IV ×2 (08:30→21:26)
[2024-11-16 10:04] LABS: Adenovirus Not Detected (Not Detect); B. parapertussis Not Detected (Not Detecte); Bordetella pertussis Not Detected (Not Detect); Chlamydophila pneumoniae Not Detected (Not Detect); Coronavirus 229E Not Detected (Not Detect); Coronavirus HKU1 Not Detected (Not Detect); Coronavirus NL 63 Not Detected (Not Detect); Coronavirus OC43 Not Detected (Not Detect); Human Metapneumovirus Not Detected (Not Detect); Human Rhinovirus/Enterovirus Not Detected (Not Detect); Influenza A Not Detected (Not Detect); Influenza B Not Detected (Not Detect); Mycoplasma pneumoniae Not Detected (Not Detect); Parainfluenza Virus 1 Not Detected (Not Detect); Parainfluenza Virus 2 Not Detected (Not Detect); Parainfluenza Virus 3 Not Detected (Not Detect); Parainfluenza Virus 4 Not Detected (Not Detect); Respiratory Syncytial Virus Not Detected (Not Detect); SARS- CoV-2 Not Detected (Not Detecte)
[2024-11-16] MEDS: IBUPROFEN 400 MG TABLET 200 MG PO ×2 (13:28→21:25)
--- NOTE | 2024-11-16 15:04 | PM.PN.1 ---
Subjective Subjective Date Patient Seen: 11/16/24 Interval history: Chief complaint: Fever chills nausea vomiting secondary to right lower lobe pneumonia History of present illness: 63-year-old female with past medical history of depression, hypothyroidism, and vitamin D deficiency presents with subjective fever, chills, nausea and vomiting. Per the patient's report, over the last 2 weeks, the patient has been feeling ill. Last 4 to 5 days the patient started to have nausea and vomiting. The patient also reports of subjective fever and chills with some coughing. Patient did check her weight today and noted that it was more normal. The patient also have some abdominal discomfort but no specific pain. Otherwise the patient denies any imaging dysuria, hematuria, GI bleeding, chest pain or shortness of breath. In the emergency room, the patient initially was hemodynamically stable without sign of sepsis. WBC was 10. Sodium was 132. IV 1.1. AST 84 ALT 109 total bilirubin 0.8. Troponin less than 0.012. Lipase 67. Upper respiratory viral panel negative. CT scan of the chest with angio shows no PE but very large right lower lobe consolidation concerning for pneumonia or aspiration. The patient was given IV doxycycline and azithromycin. CT abdomen was negative. Hospital course: Better appetite this morning but felt very fatigued and general malaise after walking back for through the bathroom Producing sputum that is creamy in appearance fever to 102.6 this afternoon diminished sound transmission and rales in right lower lobe on examination Review of systems: Plus general malaise fever shortness of breath and fatigue No sinus congestion or ear symptoms No chest pain or palpitations No nausea vomiting No neurologic symptoms Assessment and plan: Right lower lobe and right middle lobe pneumonia with very dense consolidation we will continue with aggressive antibiotic treatment agree with Zosyn and azithromycin for choices at the onset. -continue IV antibiotics -intravenous fluid -await culture results DVT prophylaxis with subcu heparin Full code Exam Vital Signs (past 8 hours): - 11/16/24 07:46 11/16/24 08:00 Temperature 98.2 F Pulse Rate 91 H Respiratory Rate 17 Blood Pressure 98/50 L Pulse Oximetry 93 Oxygen Delivery Method Nasal Cannula Oxygen Delivery Method Nasal Cannula Oxygen Flow Rate 1 Objective Labs 11/16/24 05:30 11/16/24 05:30 Labs: Laboratory Results - last 24 hr 11/15/24 11/15/24 11/16/24 20:35 20:45 00:22 WBC 10.6 RBC 4.10 Hgb 12.1 Hct 34.7 L MCV 84.6 MCH 29.5 MCHC 34.9 RDW 13.7 Plt Count 292 Neut % (Auto) 85.3 H Lymph % (Auto) 6.1 L [place] % (Auto) 6.4 Eos % (Auto) 1.7 L Baso % (Auto) 0.5 Neut # (Auto) 9000 H Lymph # (Auto) 600 L [place] # (Auto) 700 Eos # (Auto) 200 Baso # (Auto) 100 Sodium 132 L Potassium 4.4 Chloride 100 Carbon Dioxide 22 BUN 15 Creatinine 1.00 Estimated GFR > 60 BUN/Creatinine Ratio 15.0 Glucose 117 H Lactate 1.1 Calcium 8.9 Magnesium 1.7 Total Bilirubin 0.8 AST 85 H ALT 109 H Alkaline Phosphatase 272 H Total Creatine Kinase 40 Troponin I < 0.012 Total Protein 6.5 Albumin 3.6 Globulin 2.9 Albumin/Globulin Ratio 1.2 Lipase 67 Urine Color Yellow Urine Appearance Clear Urine pH 6.5 Ur Specific [place] <=1.005 Urine Protein Negative Urine Glucose (UA) Negative Urine Ketones 1+ H Urine Occult Blood 1+ H Urine Nitrate Negative Urine Bilirubin Negative Urine Urobilinogen 0.2 Ur Leukocyte Esterase Negative Urine RBC 5-10/hpf H Urine WBC None seen Ur Squamous Epith Cells 0-1 /hpf Urine Bacteria Occasional (0-1) Ur Culture Indicated? Cult not indicated Vol Urine Centrifuged 10ml (spun) Chlamy pneumoniae PCR Adenovirus (PCR) B. pertussis DNA (PCR) B.parapertussis DNA PCR Coronavirus OC43 (PCR) Coronavirus HKU1 (PCR) Coronavirus 229E (PCR) SARS-CoV-2 (PCR) Negative Coronavirus NL63 (PCR) Human Metapneumovir PCR Influenza A (RT-PCR) Flu a negative Influenza Type A (PCR) Influenza B (RT-PCR) Flu b negative Influenza Type B (PCR) M. pneumoniae (PCR) Parainfluenza 1 (PCR) Parainfluenza 2 (PCR) Parainfluenza 3 (PCR) Parainfluenza 4 (PCR) RSV (PCR) Negative Entero/Rhino (PCR) 11/16/24 11/16/24 05:30 08:20 WBC 9.4 RBC 3.92 L Hgb 11.5 L Hct 33.2 L MCV 84.8 MCH 29.3 MCHC 34.6 RDW 13.4 Plt Count 285 Neut % (Auto) 81.3 H Lymph % (Auto) 9.8 L [place] % (Auto) 7.5 Eos % (Auto) 0.7 L Baso % (Auto) 0.7 Neut # (Auto) 7600 H Lymph # (Auto) 900 L [place] # (Auto) 700 Eos # (Auto) 100 Baso # (Auto) 100 Sodium 137 Potassium 4.3 Chloride 103 Carbon Dioxide 25 BUN 13 Creatinine 0.86 Estimated GFR > 60 BUN/Creatinine Ratio 15.1 Glucose 95 Lactate Calcium 8.3 L Magnesium Total Bilirubin AST ALT Alkaline Phosphatase Total Creatine Kinase Troponin I Total Protein Albumin Globulin Albumin/Globulin Ratio Lipase Urine Color Urine Appearance Urine pH Ur Specific [place] Urine Protein Urine Glucose (UA) Urine Ketones Urine Occult Blood Urine Nitrate Urine Bilirubin Urine Urobilinogen Ur Leukocyte Esterase Urine RBC Urine WBC Ur Squamous Epith Cells Urine Bacteria Ur Culture Indicated? Vol Urine Centrifuged Chlamy pneumoniae PCR Not detected Adenovirus (PCR) Not detected B. pertussis DNA (PCR) Not detected B.parapertussis DNA PCR Not detected Coronavirus OC43 (PCR) Not detected Coronavirus HKU1 (PCR) Not detected Coronavirus 229E (PCR) Not detected SARS-CoV-2 (PCR) Not detected Coronavirus NL63 (PCR) Not detected Human Metapneumovir PCR Not detected Influenza A (RT-PCR) Influenza Type A (PCR) Not detected Influenza B (RT-PCR) Influenza Type B (PCR) Not detected M. pneumoniae (PCR) Not detected Parainfluenza 1 (PCR) Not detected Parainfluenza 2 (PCR) Not detected Parainfluenza 3 (PCR) Not detected Parainfluenza 4 (PCR) Not detected RSV (PCR) Not detected Entero/Rhino (PCR) Not detected [facility] Medical History Anxiety and depression Herpes labialis Hypothyroidism Iron deficiency anemia Retinal detachment (~1993) Retinal detachment (~1984) Surgical History History of photorefractive keratectomy (PRK) (~1992) History of surgical removal of ganglion cyst (~2014) S/P endometrial ablation (~2009) Social History household members: children and none Smoking Status: Never smoker alcohol intake: current Assessment & Plan Time-Based Coding :: 35 minutes spent with patient and on the chart (including review of chart, obtaining history, exam, reviewing outside data, placing orders, documenting exam and treatment plan, and counseling patient) .
[2024-11-16 15:14] VITALS: BP 128/69; PULSE 111; RESP 19; TEMP 39.7; O2SAT 91
--- NOTE | 2024-11-16 15:57 | CM.DANOTE ---
Addendum entered by EDGAR Moran 11/16/24 16:23: ADD: Patient lives on [facility]. Original Note: Initial DCP Assessment Note Pt is a 63 yo female, resident of [place], admitted [place] for management of PNA. PCP: Dr. Edison Lei: Carlos Reviewed chart, pt discussed in multidisciplinary rounds this morning. According to Dr Ware: -continue IV antibiotics -intravenous fluid -await culture results Patient lives independently, alone, supportive family. Patient feeling very ill today. No barriers identified at this time to patient's safe discharge home w/family. CM team will plan to follow clinical course closely in case any DC needs or concerns arise. EDGAR Manuel Discharge Planning/Care Management Discharge Assessment Start: 11/15/24 22:43 Freq: Status: Active Protocol: Document 11/16/24 15:55 SALIMA (Rec: 11/16/24 15:57 SALIMA [id number]) Discharge Planning Assessment Assigned Dairy Bacteriologist EDGAR Downing DPOA/Assigned Designee Name Zohaib Watson (son) Contact Information [phone] Advance Directives? Yes Advance Directives on File No History Provided By Patient,Medical Record Has Patient been admitted in last 30 No days? Prior Living Arrangements House Household Members none Type of transporation used prior to Drives own vehicle admit Independent with ADL's Yes Is patient alert and oriented? Yes Barriers to Discharge No Discharge Plan Home Transportation Arrangement Family Referrals Initiated None needed Additional Comment Following for needs.
--- NOTE | 2024-11-16 16:34 | DI.RAD.S_ITS ---
PROCEDURE: XR CHEST 1V INDICATIONS: Pneumonia and worsening symptoms TECHNIQUE: One view of the chest was acquired. COMPARISON: [facility], CT, CT ANGIO CHEST PE PROTOCOL, 11/15/2024, 21:31. [facility], CR, XR CHEST 1V, 11/15/2024, 20:35. FINDINGS: Surgical changes and devices: None. Lungs and pleura: Right mid and lower lung field basilar opacity. No pleural effusions or pneumothorax. Mediastinum: Mediastinal contours appear normal. Heart size is normal. Bones and chest wall: No suspicious bony lesions. Overlying soft tissues appear unremarkable. IMPRESSION: Right mid and lower lung field opacity is redemonstrated. Similar compared to prior, however poor inspiratory effort on current exam limits comparison. Dictated by: Asaf Jackson M.D. on 11/16/2024 at 16:55 Approved by: Asaf Jackson M.D. on 11/16/2024 at 16:57
[2024-11-16 18:13] VITALS: PULSE 85; RESP 16; O2SAT 92
[2024-11-16 21:00] VITALS: BP 99/58; PULSE 76; RESP 12; TEMP 36.4; O2SAT 93
[2024-11-16] MEDS: HEPARIN 5,000 UNIT/ML VIAL 5000 UNIT SUBCUT (21:25)
[2024-11-17] VITALS (7 sets, daily range): BP systolic 90–124; BP diastolic 50–68; PULSE 77–101; RESP 16–20; TEMP 36–37.1; O2SAT 93–96
[2024-11-17] MEDS: PIPERACILLIN/TAZO 3.375 GM in SODIUM CHLORIDE 0.9% 100 ML IV ×3 (00:41→17:49)
[2024-11-17] MEDS: SODIUM CHLORIDE 0.9% 1,000 ML 100 ML IV ×2 (03:43→14:55)
--- NOTE | 2024-11-17 04:54 | PC.NURSE ---
Nightshift Patient was on NC @3liters (with humidifier) start of shift. Around 0000 RN noted Patient kept dipping down to 88-86, RN was able to switch Patient over to oximask at a rate of 6 liters, patient stayed in 93-96% after that. Patient stayed asleep during oxygen delivery mask change.
[2024-11-17] MEDS: ACETAMINOPHEN 325 MG TABLET 650 MG PO ×3 (06:16→21:59)
[2024-11-17] MEDS: IBUPROFEN 400 MG TABLET 200 MG PO (06:16)
[2024-11-17] MEDS: LEVOTHYROXINE 88 MCG TABLET PO (06:18)
[2024-11-17] MEDS: HEPARIN 5,000 UNIT/ML VIAL 5000 UNIT SUBCUT ×2 (09:41→21:12)
[2024-11-17] MEDS: CITALOPRAM 10 MG TABLET PO (09:41)
[2024-11-17] MEDS: SODIUM CHLORIDE 0.9% FLUSH 10 ML IV (10:05)
[2024-11-17] MEDS: AZITHROMYCIN 500 MG in DEXTROSE 5% IN WATER 250 ML 250 MG IV (10:05)
--- NOTE | 2024-11-17 13:40 | CM.DPNOTE ---
DCP Cont Reviewed chart. Patient discussed in multidisciplinary rounds. Patient with right lower lobe and right middle lobe pneumonia, very dense consolidation according to Dr Ware. Aggressive IV abx continues. Plan remains discharge home w/family w/close outpatient follow up. Patient likely will not need any resource/agency referral from this SW team. CM team following clinical course closely in case any discharge needs or concerns arise. SALIMA
--- NOTE | 2024-11-17 17:50 | P.PN_ITS ---
Subjective Subjective Date Patient Seen: 11/17/24 Interval history: Chief complaint: Fever chills nausea vomiting secondary to right lower lobe pneumonia History of present illness: 63-year-old female with past medical history of depression, hypothyroidism, and vitamin D deficiency presents with subjective fever, chills, nausea and vomiting. Per the patient's report, over the last 2 weeks, the patient has been feeling ill. Last 4 to 5 days the patient started to have nausea and vomiting. The patient also reports of subjective fever and chills with some coughing. Patient did check her weight today and noted that it was more normal. The patient also have some abdominal discomfort but no specific pain. Otherwise the patient denies any imaging dysuria, hematuria, GI bleeding, chest pain or shortness of breath. In the emergency room, the patient initially was hemodynamically stable without sign of sepsis. WBC was 10. Sodium was 132. IV 1.1. AST 84 ALT 109 total bilirubin 0.8. Troponin less than 0.012. Lipase 67. Upper respiratory viral panel negative. CT scan of the chest with angio shows no PE but very large right lower lobe consolidation concerning for pneumonia or aspiration. The patient was given IV doxycycline and azithromycin. CT abdomen was negative. Hospital course: 11/16: Better appetite this morning but felt very fatigued and general malaise after walking back for through the bathroom Producing sputum that is creamy in appearance fever to 102.6 this afternoon diminished sound transmission and rales in right lower lobe on examination 11/17: Patient is slept well last night feeling significantly better this morning less dyspnea nose night sweats or chills overnight Review of systems: Improved shortness of breath and fatigue No sinus congestion or ear symptoms No chest pain or palpitations No nausea vomiting No neurologic symptoms Assessment and plan: Right lower lobe and right middle lobe pneumonia with very dense consolidation we will continue with aggressive antibiotic treatment agree with Zosyn and azithromycin for choices at the onset. -continue IV antibiotics -intravenous fluid -await culture results DVT prophylaxis with subcu heparin Full code Exam Vital Signs (past 8 hours): - 11/17/24 10:35 11/17/24 14:00 Temperature 98.7 F 97.0 F L Pulse Rate 101 H 88 Respiratory Rate 18 18 Blood Pressure 90/58 L 104/50 L Pulse Oximetry 93 93 Oxygen Flow Rate 6 6 Fraction of Inspired Oxygen 35 SaO2/FiO2 Ratio 262 Oxygen Delivery Method Oximask Oxygen Flow Rate 6 Objective Labs 11/16/24 05:30 11/16/24 05:30 [facility] Medical History Anxiety and depression Herpes labialis Hypothyroidism Iron deficiency anemia Retinal detachment (~1993) Retinal detachment (~1984) Surgical History History of photorefractive keratectomy (PRK) (~1992) History of surgical removal of ganglion cyst (~2014) S/P endometrial ablation (~2009) Social History household members: none Smoking Status: Never smoker alcohol intake: current Assessment & Plan Time-Based Coding :: [TOTAL MINUTES] spent with patient and on the chart (including review of chart, obtaining history, exam, reviewing outside data, placing orders, documenting exam and treatment plan, and counseling patient) on [DATE].
[2024-11-17] MEDS: TRAZODONE 50 MG TABLET PO (21:59)
[2024-11-18] VITALS (9 sets, daily range): BP systolic 113–135; BP diastolic 57–78; PULSE 66–84; RESP 18–24; TEMP 36.2–36.6; O2SAT 84–94
[2024-11-18] MEDS: PIPERACILLIN/TAZO 3.375 GM in SODIUM CHLORIDE 0.9% 100 ML IV ×3 (00:47→18:11)
[2024-11-18] MEDS: SODIUM CHLORIDE 0.9% 1,000 ML 100 ML IV (00:52)
[2024-11-18] MEDS: LEVOTHYROXINE 88 MCG TABLET PO (05:23)
--- NOTE | 2024-11-18 08:34 | DI.RAD.S_ITS ---
PROCEDURE: XR CHEST 1V INDICATIONS: Hypoxia TECHNIQUE: One view of the chest was acquired. COMPARISON: [facility], CR, XR CHEST 1V, 11/15/2024, 20:35. [facility], CT, CT ANGIO CHEST PE PROTOCOL, 11/15/2024, 21:31. [facility], CR, XR CHEST 1V, 11/16/2024, 16:36. FINDINGS: Surgical changes and devices: None. Lungs and pleura: Consolidation can be seen in the right base, bronchograms. There is a likely small right-sided. No pneumothorax is seen. Mediastinum: Mediastinal contours appear normal. Heart size is normal. Bones and chest wall: No suspicious bony lesions. Age-appropriate bony degenerative changes are seen. Overlying soft tissues appear unremarkable. IMPRESSION: Dense consolidation again seen at the right lung base. No significant change from the prior. Dictated by: Jose Maria Webb M.D. on 11/18/2024 at 8:03 Approved by: Jose Maria Webb M.D. on 11/18/2024 at 8:05
[2024-11-18 09:19] LABS: Hemoglobin 11.1 g/dL (12.0-16.0); Mean Corpuscular HGB Conc 34.6 % (30-36); Mean Corpuscular Hemoglobin 29.1 PG (26-34); Mean Corpuscular Volume 84.1 fL (80-100); Platelet Count 391 X10^3/uL (150-400); Red Blood Cell Count 3.81 X10^6/uL (4.0-5.2); Red Cell Distribution Width 14.4 % (11.6-14.8); White Blood Cell Count 7.7 X10^3/uL (4.5-11.0)
[2024-11-18 09:22] LABS: Add Manual Diff / Slide Review YES
[2024-11-18 09:26] LABS: Alanine Aminotransferase 73 IU/L (<35); Albumin 2.8 g/dL (3.5-5.0); Albumin Globulin Ratio 0.9 (1.0-2.8); Alkaline Phosphatase 286 U/L (38-126); Aspartate Aminotransferase 79 IU/L (14-36); BUN Creatinine Ratio 13.3 (6-22); Bilirubin Total 0.3 mg/dL (0.2-1.3); Blood Urea Nitrogen 10 mg/dL (7-17); Calcium 8.5 mg/dL (8.4-10.2); Carbon Dioxide 24 mmol/L (22-32); Chloride 110 mmol/L (98-107); Estimated Glomerular Filt Rate > 60 mL/min (>60); Glucose 92 mg/dL (70-99); HEMOLYSIS < 15 (0-50); Potassium 4.1 mmol/L (3.4-5.1); Sodium 139 mmol/L (137-145); Total Protein 5.8 g/dL (6.3-8.2)
[2024-11-18 09:39] LABS: Neutrophils Absolute Manual 4620 /uL (3000-5900); RBC Morphology Normal Morphology; Total Cells Counted 100
[2024-11-18 09:53] LABS: Base Excess ABG -0.1 mmol/L (-2-3); Blood Gas Collection Site Right Brachial; Delivery System 7 lpm Oximask; HCO3 ABG 24 mmol/L (23-27); Oxygen Saturation ABG 93 % (95-100); PCO2 ABG 35.4 mmHg (35-45); PO2 ABG 65 mmHg (80-100); TCO2 ABG 23 mmol/L (23-27); pH ABG 7.44 (7.35-7.45)
[2024-11-18] MEDS: HEPARIN 5,000 UNIT/ML VIAL 5000 UNIT SUBCUT ×2 (10:03→20:33)
[2024-11-18] MEDS: CITALOPRAM 10 MG TABLET PO (10:04)
[2024-11-18] MEDS: AZITHROMYCIN 500 MG in DEXTROSE 5% IN WATER 250 ML 250 MG IV (10:04)
[2024-11-18] MEDS: IBUPROFEN 400 MG TABLET 200 MG PO (15:01)
--- NOTE | 2024-11-18 16:17 | PM.PN.1 ---
Subjective Subjective Date Patient Seen: 11/18/24 Interval history: Chief complaint: Fever chills nausea vomiting secondary to right lower lobe pneumonia History of present illness: 63-year-old female with past medical history of depression, hypothyroidism, and vitamin D deficiency presents with subjective fever, chills, nausea and vomiting. Per the patient's report, over the last 2 weeks, the patient has been feeling ill. Last 4 to 5 days the patient started to have nausea and vomiting. The patient also reports of subjective fever and chills with some coughing. Patient did check her weight today and noted that it was more normal. The patient also have some abdominal discomfort but no specific pain. Otherwise the patient denies any imaging dysuria, hematuria, GI bleeding, chest pain or shortness of breath. In the emergency room, the patient initially was hemodynamically stable without sign of sepsis. WBC was 10. Sodium was 132. IV 1.1. AST 84 ALT 109 total bilirubin 0.8. Troponin less than 0.012. Lipase 67. Upper respiratory viral panel negative. CT scan of the chest with angio shows no PE but very large right lower lobe consolidation concerning for pneumonia or aspiration. The patient was given IV doxycycline and azithromycin. CT abdomen was negative. Hospital course: 11/16: Better appetite this morning but felt very fatigued and general malaise after walking back for through the bathroom Producing sputum that is creamy in appearance fever to 102.6 this afternoon diminished sound transmission and rales in right lower lobe on examination 11/17: Patient is slept well last night feeling significantly better this morning less dyspnea nose night sweats or chills overnight 11/18: Episodes of dyspnea hypoxia after taking off her oxygen to go to the bathroom but she did recover chest x-ray looks essentially unchanged arterial blood gases satisfactory Review of systems: Improved shortness of breath and fatigue No sinus congestion or ear symptoms No chest pain or palpitations No nausea vomiting No neurologic symptoms Physical exam: Some increase breath sounds at the right base from previous exams Assessment and plan: Right lower lobe and right middle lobe pneumonia with very dense consolidation we will continue with aggressive antibiotic treatment agree with Zosyn and azithromycin for choices at the onset. -continue IV antibiotics -Discontinued Intravenous fluid -await culture results DVT prophylaxis with subcu heparin Full code Exam Vital Signs (past 8 hours): - 11/18/24 10:03 11/18/24 12:00 11/18/24 16:00 Temperature 97.9 F 97.5 F L Pulse Rate 84 72 Respiratory Rate 22 20 Blood Pressure 125/73 Pulse Oximetry 92 94 92 Oxygen Delivery Method Oximask Oxygen Flow Rate 7 6 0 Fraction of Inspired Oxygen 44 SaO2/FiO2 Ratio 211 Oxygen Delivery Method Oximask Oxygen Flow Rate 0 Objective Labs 11/18/24 09:07 11/18/24 09:07 Labs: Laboratory Results - last 24 hr 11/18/24 11/18/24 09:07 09:45 WBC 7.7 RBC 3.81 L Hgb 11.1 L Hct 32.0 L MCV 84.1 MCH 29.1 MCHC 34.6 RDW 14.4 Plt Count 391 Neut % (Auto) Not Reportable Lymph % (Auto) Not Reportable [place] % (Auto) Not Reportable Eos % (Auto) Not Reportable Baso % (Auto) Not Reportable Lymph # (Auto) Not Reportable [place] # (Auto) Not Reportable Baso # (Auto) Not Reportable Total Counted 100 Seg Neutrophils % 52.0 Band Neutrophils % 8.0 H Lymphocytes % (Manual) 21.0 L Monocytes % (Manual) 7.0 Eosinophils % (Manual) 5.0 H Basophils % (Manual) 1.0 Metamyelocytes % 2.0 H Myelocytes % 4.0 H Neutrophils # (Manual) 4620 RBC Morphology Normal morphology ABG Sample Site Right brachial ABG pH 7.44 ABG pCO2 35.4 ABG pO2 65 L ABG HCO3 24 ABG Total CO2 23 ABG O2 Saturation 93 L ABG Base Excess -0.1 Wisam Test N/a O2 Delivery Device 7 lpm oximask Sodium 139 Potassium 4.1 Chloride 110 H Carbon Dioxide 24 BUN 10 Creatinine 0.75 Estimated GFR > 60 BUN/Creatinine Ratio 13.3 Glucose 92 Calcium 8.5 Total Bilirubin 0.3 AST 79 H ALT 73 H Alkaline Phosphatase 286 H Total Protein 5.8 L Albumin 2.8 L Globulin 3.0 Albumin/Globulin Ratio 0.9 L PFSH Medical History Anxiety and depression Herpes labialis Hypothyroidism Iron deficiency anemia Retinal detachment (~1993) Retinal detachment (~1984) Surgical History History of photorefractive keratectomy (PRK) (~1992) History of surgical removal of ganglion cyst (~2014) S/P endometrial ablation (~2009) Social History household members: none Smoking Status: Never smoker alcohol intake: current Assessment & Plan Time-Based Coding :: [TOTAL MINUTES] spent with patient and on the chart (including review of chart, obtaining history, exam, reviewing outside data, placing orders, documenting exam and treatment plan, and counseling patient) on [DATE].
--- NOTE | 2024-11-18 16:28 | PC.NURSE ---
Pt resting at intervals. Lungs diminished SpO2 92% on 6L Had a shower this afternoon w/o incidence. IVF infusing as per orders. Call light w/in reach, pt calls appropriately for needs. Continue w/plan of of care.
[2024-11-18] MEDS: SODIUM CHLORIDE 0.9% FLUSH 10 ML IV (20:34)
[2024-11-18] MEDS: TRAZODONE 50 MG TABLET PO (21:54)
[2024-11-19] VITALS: BP 142/75; PULSE 68; RESP 16; TEMP 36.4; O2SAT 93
[2024-11-19] MEDS: PIPERACILLIN/TAZO 3.375 GM in SODIUM CHLORIDE 0.9% 100 ML IV ×3 (00:09→17:11)
[2024-11-19 04:00] VITALS: BP 131/75; PULSE 66; RESP 16; O2SAT 96
[2024-11-19] MEDS: LEVOTHYROXINE 88 MCG TABLET PO (06:19)
[2024-11-19 07:55] VITALS: BP 114/68; PULSE 71; RESP 24; TEMP 36.7; O2SAT 90
[2024-11-19] MEDS: CITALOPRAM 10 MG TABLET PO (08:30)
[2024-11-19] MEDS: HEPARIN 5,000 UNIT/ML VIAL 5000 UNIT SUBCUT ×2 (08:30→20:29)
[2024-11-19] MEDS: FUROSEMIDE 20 MG/2 ML VIAL IV (08:31)
--- NOTE | 2024-11-19 11:19 | PC.NURSE ---
Patients lung sounds with some crackles to l.lower bases and decreased to the r.lobes. Patient is on oxymask at 6L and sats are between 88-92%. is aware of this. Given 20mg of iv lasix. She has been up using the bsc/bathroom. Patient is also using her flutter valve and IS regularly.
[2024-11-19 12:00] VITALS: RESP 20; TEMP 36.9
--- NOTE | 2024-11-19 14:18 | CM.DPNOTE ---
DCP Cont Reviewed chart. Patient discussed in multidisciplinary rounds. Patient remains hypoxic- slow improvement. ANDREIA 11/21. Plan remains discharge home w/close outpatient follow up. Patient may benefit from home O2 RT eval. CM team following clinical course closely in case any discharge needs or concerns arise. SALIMA
[2024-11-19] MEDS: ACETAMINOPHEN 325 MG TABLET 650 MG PO (15:40)
[2024-11-19] MEDS: IBUPROFEN 400 MG TABLET 200 MG PO (15:41)
[2024-11-19 16:00] VITALS: BP 100/55; PULSE 76; RESP 20; TEMP 36.4; O2SAT 94
--- NOTE | 2024-11-19 17:24 | P.PN_ITS ---
Subjective Subjective Date Patient Seen: 11/19/24 Interval history: [facility] complaint: Fever chills nausea vomiting secondary to right lower lobe pneumonia History of present illness: 63-year-old female with past medical history of depression, hypothyroidism, and vitamin D deficiency presents with subjective fever, chills, nausea and vomiting. Per the patient's report, over the last 2 weeks, the patient has been feeling ill. Last 4 to 5 days the patient started to have nausea and vomiting. The patient also reports of subjective fever and chills with some coughing. Patient did check her weight today and noted that it was more normal. The patient also have some abdominal discomfort but no specific pain. Otherwise the patient denies any imaging dysuria, hematuria, GI bleeding, chest pain or shortness of breath. In the emergency room, the patient initially was hemodynamically stable without sign of sepsis. WBC was 10. Sodium was 132. IV 1.1. AST 84 ALT 109 total bilirubin 0.8. Troponin less than 0.012. Lipase 67. Upper respiratory viral panel negative. CT scan of the chest with angio shows no PE but very large right lower lobe consolidation concerning for pneumonia or aspiration. The patient was given IV doxycycline and azithromycin. CT abdomen was negative. Hospital course: 11/16: Better appetite this morning but felt very fatigued and general malaise after walking back for through the bathroom Producing sputum that is creamy in appearance fever to 102.6 this afternoon diminished sound transmission and rales in right lower lobe on examination 11/17: Patient is slept well last night feeling significantly better this morning less dyspnea nose night sweats or chills overnight 11/18: Episodes of dyspnea hypoxia after taking off her oxygen to go to the bathroom but she did recover chest x-ray looks essentially unchanged arterial blood gases satisfactory 11/19: Dyspnea on exertion still with taking off her oxygen dose of Lasix given today 800 cc urine output this morning Review of systems: Improved shortness of breath and fatigue No sinus congestion or ear symptoms No chest pain or palpitations No nausea vomiting No neurologic symptoms Physical exam: Some increase breath sounds at the right base from previous exams Assessment and plan: Right lower lobe and right middle lobe pneumonia with very dense consolidation we will continue with aggressive antibiotic treatment agree with Zosyn and azithromycin for choices at the onset. -continue IV antibiotics -Discontinued Intravenous fluid -await culture results DVT prophylaxis with subcu heparin Full code Exam Vital Signs (past 8 hours): - 11/19/24 12:00 11/19/24 16:00 Temperature 98.5 F 97.5 F L Pulse Rate 76 Respiratory Rate 20 20 Blood Pressure 100/55 L Pulse Oximetry 94 Oxygen Flow Rate 6 Fraction of Inspired Oxygen 45 SaO2/FiO2 Ratio 208 Oxygen Delivery Method Oximask Oxygen Flow Rate 6 Objective Labs 11/18/24 09:07 11/18/24 09:07 [facility] Medical History Anxiety and depression Herpes labialis Hypothyroidism Iron deficiency anemia Retinal detachment (~1993) Retinal detachment (~1984) Surgical History History of photorefractive keratectomy (PRK) (~1992) History of surgical removal of ganglion cyst (~2014) S/P endometrial ablation (~2009) Social History household members: none Smoking Status: Never smoker alcohol intake: current Assessment & Plan Time-Based Coding :: 35 minute spent with patient and on the chart (including review of chart, obtaining history, exam, reviewing outside data, placing orders, documenting exam and treatment plan, and counseling patient) .
[2024-11-19 19:59] VITALS: BP 118/72; PULSE 70; RESP 19; TEMP 36.5; O2SAT 98
[2024-11-19] MEDS: SODIUM CHLORIDE 0.9% FLUSH 10 ML IV (20:30)
[2024-11-19] MEDS: TRAZODONE 50 MG TABLET PO (21:36)
[2024-11-20] VITALS (8 sets, daily range): BP systolic 96–135; BP diastolic 58–79; PULSE 64–86; RESP 17–21; TEMP 35.7–36.4; O2SAT 86–94
[2024-11-20] MEDS: PIPERACILLIN/TAZO 3.375 GM in SODIUM CHLORIDE 0.9% 100 ML IV ×3 (00:21→18:05)
[2024-11-20] MEDS: LEVOTHYROXINE 88 MCG TABLET PO (05:53)
[2024-11-20] MEDS: CITALOPRAM 10 MG TABLET PO (08:59)
[2024-11-20] MEDS: HEPARIN 5,000 UNIT/ML VIAL 5000 UNIT SUBCUT ×2 (08:59→20:59)
[2024-11-20] MEDS: SODIUM CHLORIDE 0.9% FLUSH 10 ML IV ×2 (09:00→20:59)
[2024-11-20] MEDS: methylPREDNISolone 125 MG/2 ML VIAL IV (11:51)
--- NOTE | 2024-11-20 12:11 | CM.DPNOTE ---
DCP note TELE[employer] MECH[employer]IC reviewed EMR per chart, on 6ltrs O2 at this time. per provider in morning rounds, switching to steroids today. 88 at rest and then destats with activity. No barriers identified at this time to patient's safe discharge home when medically cleared to do so. CM team will plan to follow clinical course closely in case any DC needs or concerns arise. EDGAR Juan
--- NOTE | 2024-11-20 13:20 | PM.PN.1 ---
Subjective Subjective Date Patient Seen: 11/20/24 Interval history: Chief complaint: Fever chills nausea vomiting secondary to right lower lobe pneumonia History of present illness: 63-year-old female with past medical history of depression, hypothyroidism, and vitamin D deficiency presents with subjective fever, chills, nausea and vomiting. Per the patient's report, over the last 2 weeks, the patient has been feeling ill. Last 4 to 5 days the patient started to have nausea and vomiting. The patient also reports of subjective fever and chills with some coughing. Patient did check her weight today and noted that it was more normal. The patient also have some abdominal discomfort but no specific pain. Otherwise the patient denies any imaging dysuria, hematuria, GI bleeding, chest pain or shortness of breath. In the emergency room, the patient initially was hemodynamically stable without sign of sepsis. WBC was 10. Sodium was 132. IV 1.1. AST 84 ALT 109 total bilirubin 0.8. Troponin less than 0.012. Lipase 67. Upper respiratory viral panel negative. CT scan of the chest with angio shows no PE but very large right lower lobe consolidation concerning for pneumonia or aspiration. The patient was given IV doxycycline and azithromycin. CT abdomen was negative. Hospital course: 11/16: Better appetite this morning but felt very fatigued and general malaise after walking back for through the bathroom Producing sputum that is creamy in appearance fever to 102.6 this afternoon diminished sound transmission and rales in right lower lobe on examination 11/17: Patient is slept well last night feeling significantly better this morning less dyspnea nose night sweats or chills overnight 11/18: Episodes of dyspnea hypoxia after taking off her oxygen to go to the bathroom but she did recover chest x-ray looks essentially unchanged arterial blood gases satisfactory 11/19: Dyspnea on exertion still with taking off her oxygen dose of Lasix given today 800 cc urine output this morning 11/20: Still hypoxic at 7 L nasal cannula desaturates with activity Review of systems: Improved shortness of breath and fatigue No sinus congestion or ear symptoms No chest pain or palpitations No nausea vomiting No neurologic symptoms Physical exam: No acute distress HEENT unremarkable Heart sounds regular no murmurs Lungs fine crackles throughout diminished sound transmission on the right base posterior lung garza Abdomen benign Extremities no edema Assessment and plan: Right lower lobe and right middle lobe pneumonia with very dense consolidation we will continue with aggressive antibiotic treatment agree with Zosyn and azithromycin for choices at the onset. -continue IV antibiotics -Discontinued Intravenous fluid -cultures expectorated sputum -add steroid for anti-inflammatory DVT prophylaxis with subcu heparin Full code Time-Based Coding :: 35 minute spent with patient and on the chart (including review of chart, obtaining history, exam, reviewing outside data, placing orders, documenting exam and treatment plan, and counseling patient) Exam Vital Signs (past 8 hours): - 11/20/24 07:00 11/20/24 08:50 11/20/24 09:00 Temperature 96.9 F L Pulse Rate 86 Respiratory Rate 18 Blood Pressure 100/63 Pulse Oximetry 94 86 L Oxygen Delivery Method Oximask Oximask Oxygen Flow Rate 6 Fraction of Inspired Oxygen 45 SaO2/FiO2 Ratio 208 Oxygen Delivery Method Oximask Oxygen Flow Rate 6 Objective Labs 11/18/24 09:07 11/18/24 09:07 [facility] Medical History Anxiety and depression Herpes labialis Hypothyroidism Iron deficiency anemia Retinal detachment (~1993) Retinal detachment (~1984) Surgical History History of photorefractive keratectomy (PRK) (~1992) History of surgical removal of ganglion cyst (~2014) S/P endometrial ablation (~2009) Social History household members: none Smoking Status: Never smoker alcohol intake: current Assessment & Plan Time-Based Coding :: [TOTAL MINUTES] spent with patient and on the chart (including review of chart, obtaining history, exam, reviewing outside data, placing orders, documenting exam and treatment plan, and counseling patient) on [DATE].
[2024-11-20] MEDS: methylPREDNISolone 125 MG/2 ML VIAL 60 MG IV (20:59)
[2024-11-20] MEDS: TRAZODONE 50 MG TABLET PO (21:46)
[2024-11-21] VITALS (7 sets, daily range): BP systolic 98–128; BP diastolic 54–77; PULSE 70–86; RESP 17–20; TEMP 35.8–36.5; O2SAT 91–95
[2024-11-21] MEDS: PIPERACILLIN/TAZO 3.375 GM in SODIUM CHLORIDE 0.9% 100 ML IV (01:35)
[2024-11-21] MEDS: LEVOTHYROXINE 88 MCG TABLET PO (06:27)
[2024-11-21] MEDS: HEPARIN 5,000 UNIT/ML VIAL 5000 UNIT SUBCUT ×2 (08:27→20:10)
[2024-11-21] MEDS: CITALOPRAM 10 MG TABLET PO (08:27)
[2024-11-21] MEDS: methylPREDNISolone 125 MG/2 ML VIAL 60 MG IV ×2 (08:28→20:10)
--- NOTE | 2024-11-21 08:37 | P.PN_ITS ---
Subjective Subjective Date Patient Seen: 11/21/24 Interval history: Chief complaint: Fever chills nausea vomiting secondary to right lower lobe pneumonia History of present illness: 63-year-old female with past medical history of depression, hypothyroidism, and vitamin D deficiency presents with subjective fever, chills, nausea and vomiting. Per the patient's report, over the last 2 weeks, the patient has been feeling ill. Last 4 to 5 days the patient started to have nausea and vomiting. The patient also reports of subjective fever and chills with some coughing. Patient did check her weight today and noted that it was more normal. The patient also have some abdominal discomfort but no specific pain. Otherwise the patient denies any imaging dysuria, hematuria, GI bleeding, chest pain or shortness of breath. In the emergency room, the patient initially was hemodynamically stable without sign of sepsis. WBC was 10. Sodium was 132. IV 1.1. AST 84 ALT 109 total bilirubin 0.8. Troponin less than 0.012. Lipase 67. Upper respiratory viral panel negative. CT scan of the chest with angio shows no PE but very large right lower lobe consolidation concerning for pneumonia or aspiration. The patient was given IV doxycycline and azithromycin. CT abdomen was negative. Hospital course: 11/16: Better appetite this morning but felt very fatigued and general malaise after walking back for through the bathroom Producing sputum that is creamy in appearance fever to 102.6 this afternoon diminished sound transmission and rales in right lower lobe on examination 11/17: Patient is slept well last night feeling significantly better this morning less dyspnea nose night sweats or chills overnight 11/18: Episodes of dyspnea hypoxia after taking off her oxygen to go to the bathroom but she did recover chest x-ray looks essentially unchanged arterial blood gases satisfactory 11/19: Dyspnea on exertion still with taking off her oxygen dose of Lasix given today 800 cc urine output this morning 11/20: Still hypoxic at 7 L nasal cannula desaturates with activity 11/21: Oxygen requirement has reduced to 3.5 L still desaturates with activity but not badly patient is feeling less fatigued and improved Review of systems: Improved shortness of breath and fatigue No sinus congestion or ear symptoms No chest pain or palpitations No nausea vomiting No neurologic symptoms Physical exam: No acute distress HEENT unremarkable Heart sounds regular no murmurs Lungs fine crackles throughout diminished sound transmission on the right base posterior lung garza Abdomen benign Extremities no edema Assessment and plan: Right lower lobe and right middle lobe pneumonia with very dense consolidation we will continue with aggressive antibiotic treatment agree with Zosyn and azithromycin for choices at the onset. -continue IV antibiotics -Discontinued Intravenous fluid -cultures expectorated sputum -added steroid for anti-inflammatory -home O2 eval -probable discharge in a.m. 11/22 on oral antibiotic 4-5 days DVT prophylaxis with subcu heparin Full code Time-Based Coding :: 35 minute spent with patient and on the chart (including review of chart, obtaining history, exam, reviewing outside data, placing orders, documenting exam and treatment plan, and counseling patient) Exam Vital Signs (past 8 hours): - 11/21/24 04:00 Temperature 97.1 F L Pulse Rate 70 Respiratory Rate 18 Blood Pressure 118/70 Pulse Oximetry 92 Oxygen Flow Rate 6 Fraction of Inspired Oxygen 45 SaO2/FiO2 Ratio 208 Oxygen Delivery Method Oximask Oxygen Flow Rate 6 Objective Labs 11/18/24 09:07 11/18/24 09:07 [facility] Medical History Anxiety and depression Herpes labialis Hypothyroidism Iron deficiency anemia Retinal detachment (~1993) Retinal detachment (~1984) Surgical History History of photorefractive keratectomy (PRK) (~1992) History of surgical removal of ganglion cyst (~2014) S/P endometrial ablation (~2009) Social History household members: none Smoking Status: Never smoker alcohol intake: current Assessment & Plan Time-Based Coding :: [TOTAL MINUTES] spent with patient and on the chart (including review of chart, obtaining history, exam, reviewing outside data, placing orders, documenting exam and treatment plan, and counseling patient) on [DATE].
[2024-11-21] MEDS: SODIUM CHLORIDE 0.9% FLUSH 10 ML IV ×3 (08:39→20:11)
[2024-11-21] MEDS: SODIUM CHLORIDE 0.9% 1,000 ML 100 ML IV ×2 (11:50→21:43)
--- NOTE | 2024-11-21 12:14 | CM.DPNOTE ---
DCP note [employer] EXEC[employer]IVE reviewed EMR per provider in morning rounds, anticipate another day or so. pt remains on 3-6 ltrs of O2 at this time. No barriers identified at this time to patient's safe discharge home when medically cleared to do so. CM team will plan to follow clinical course closely in case any DC needs or concerns arise. EDGAR Juan
[2024-11-21] MEDS: TRAZODONE 50 MG TABLET PO (20:11)
[2024-11-22 00:10] VITALS: BP 117/70; PULSE 69; RESP 16; TEMP 36.9; O2SAT 96
[2024-11-22 04:15] VITALS: BP 115/65; PULSE 67; RESP 16; TEMP 36.1; O2SAT 96
[2024-11-22] MEDS: SODIUM CHLORIDE 0.9% 1,000 ML 100 ML IV (05:44)
[2024-11-22] MEDS: LEVOTHYROXINE 88 MCG TABLET PO (05:44)
[2024-11-22 08:00] VITALS: PULSE 62; RESP 20; O2SAT 97
[2024-11-22] MEDS: SODIUM CHLORIDE 0.9% FLUSH 10 ML IV (08:59)
[2024-11-22] MEDS: CITALOPRAM 10 MG TABLET PO (08:59)
[2024-11-22] MEDS: HEPARIN 5,000 UNIT/ML VIAL 5000 UNIT SUBCUT (08:59)
[2024-11-22] MEDS: methylPREDNISolone 125 MG/2 ML VIAL 60 MG IV (08:59)
--- NOTE | 2024-11-22 09:40 | P.DS_ITS ---
History of Present Illness History of Present Illness Chief complaint: sick Narrative: History of present illness: 63-year-old female with past medical history of depression, hypothyroidism, and vitamin D deficiency presents with subjective fever, chills, nausea and vomiting. Per the patient's report, over the last 2 weeks, the patient has been feeling ill. Last 4 to 5 days the patient started to have nausea and vomiting. The patient also reports of subjective fever and chills with some coughing. Patient did check her weight today and noted that it was more normal. The patient also have some abdominal discomfort but no specific pain. Otherwise the patient denies any imaging dysuria, hematuria, GI bleeding, chest pain or shortness of breath. In the emergency room, the patient initially was hemodynamically stable without sign of sepsis. WBC was 10. Sodium was 132. IV 1.1. AST 84 ALT 109 total bilirubin 0.8. Troponin less than 0.012. Lipase 67. Upper respiratory viral panel negative. CT scan of the chest with angio shows no PE but very large right lower lobe consolidation concerning for pneumonia or aspiration. The patient was given IV doxycycline and azithromycin. CT abdomen was negative. Discharge Providers Provider Date of admission: 11/15/24 22:17 Discharge Date: 11/22/24 Primary care physician: Stephen Oakes MD Discharge provider: Wisam Bennett MD Summary Hospital Course Discharge Diagnosis: 1. Right lower lobe and right middle lobe pneumonia, present on admission and improving. Hospital Course: Hospital course: 11/16: Better appetite this morning but felt very fatigued and general malaise after walking back for through the bathroom Producing sputum that is creamy in appearance fever to 102.6 this afternoon diminished sound transmission and rales in right lower lobe on examination 11/17: Patient is slept well last night feeling significantly better this morning less dyspnea nose night sweats or chills overnight 11/18: Episodes of dyspnea hypoxia after taking off her oxygen to go to the bathroom but she did recover chest x-ray looks essentially unchanged arterial blood gases satisfactory 11/19: Dyspnea on exertion still with taking off her oxygen dose of Lasix given today 800 cc urine output this morning 11/20: Still hypoxic at 7 L nasal cannula desaturates with activity 11/21: Oxygen requirement has reduced to 3.5 L still desaturates with activity but not badly patient is feeling less fatigued and improved. 11/22: Doing well, she feels that she was ready for discharge in his open to short term home oxygen. She was evaluated for home oxygen. [N], the patient has documentation of a left ventricle ejection fracture less than or equal to 40%, or moderately or severely reduced left ventricle systolic function. [N], the patient has a history of heart transplant or left ventricular assist device (LVAD). [N], the patient was prescribed an TROY inhibitor at discharge or is already being taken. [N], the patient was prescribed a beta lisa at discharge. TROY and BB not indciated. Status at Discharge Cognitive/behavioral status at discharge: oriented Functional status at discharge: independent ambulation Overall status at discharge: patient is progressing back to baseline Time Spent with Patient Time spent: Greater than 30 minutes Exam Vital Signs (past 8 hours): - 11/22/24 04:15 11/22/24 08:00 11/22/24 09:00 Temperature 97.0 F L Pulse Rate 67 62 Respiratory Rate 16 20 Blood Pressure 115/65 Pulse Oximetry 96 97 Oxygen Delivery Method Nasal Cannula Oxygen Flow Rate 1 0 Fraction of Inspired Oxygen 24 SaO2/FiO2 Ratio 208 Oxygen Delivery Method Nasal Cannula Oxygen Flow Rate 0 Narrative Exam Narrative: NAD, alert and oriented. Fluent speech. On 1-2 L O2 NC. Lungs are clear, normal rate and effort. Heart is regular, no murmur gallop or rub. Abdomen is soft, non distended. Extremities are free of edema. Objective ECG Impression: Intervals [place] Rate: 93 P: 34 IN: 132 QRS: 30 QRSD: 82 T: 14 QT: 340 QTc: 422 Interpretive Statements Normal sinus rhythm Imaging CXR: : Radiologist's impression: Dense consolidation again seen at the right lung base. No significant change from the prior. CT scan - chest: My impression: No pulmonary embolus. Very large right lower lobe consolidation, most likely due to pneumonia or aspiration. No pleural effusion seen. Labs 11/18/24 09:07 11/18/24 09:07 [facility] Medical History Retinal detachment (~1984) Herpes labialis Retinal detachment (~1993) Iron deficiency anemia Anxiety and depression Hypothyroidism Surgical History History of photorefractive keratectomy (PRK) (~1992) S/P endometrial ablation (~2009) History of surgical removal of ganglion cyst (~2014) Social History household members: none Smoking Status: Never smoker alcohol intake: current Discharge Assessment & Plan Assessment and Plan Assessment: 1. Right lower lobe and right middle lobe pneumonia, present on admission and improving. Plan of Treatment: Discharge home on PO antibiotics. Home O2 and close follow up. Discharge Plan Discharge Plan Patient Disposition: Home Provider Discharge Comment: Stable for discharge home on transient home oxygen. We will complete another 4 days of antibiotics and have close follow up next week. Discharge orders & Medications Prescriptions: New cefdinir 300 mg capsule 300 mg PO Q12H Qty: 8 0RF Continued citalopram 10 mg tablet 10 mg PO DAILY levothyroxine 25 mcg tablet 88 mcg PO DAILY Follow up/Referrals: Rock Moyer MD [Physician] - (you have a follow up appointment with Dr Moyer on next ) Discharge Health Status Multidrug resistant organism: No MDRO Diet/Activity/Treatments Diet: Regular Visit Report/Discharge Packet Instructions: DI for Pneumonia -- Adult Stand Alone Forms: Patient Portal/API, Patient Portal/API/Survey Discharge Data Primary Care Provider: Stephen Oakes
--- NOTE | 2024-11-22 10:59 | CM.DPNOTE ---
DCP note ZOOKEEPER reviewed EMR per RN, pt on room air at rest but needs 1 ltr with ambulation. Per provider in morning rounds, anticipate dc today. ZOOKEEPER met with pt in room. pt hopeful to leave by 12 to catch [place] [facility] [place] to [place]. report has PCP appt f/u for next with Dr. Moyer at [facility]. denies other CM/DCP needs or questions at this time. P: dc home today with son to transport and OP PCP f/u. CM team will continue to follow as needed EDGAR Juan
--- NOTE | 2024-11-22 12:05 | PC.NURSE ---
D/c instructions reviewed with pt. IV and tele removed. RT educated pt on use of home oxygen. Pt exited with [employer] CONTROL OFFICER to private vehicle.
== END 2024-11-22 12:06 | disposition home or self-care (01) | DRG 193 ==
LOC: ED 22:14 → AC 22:17
PROVIDERS: Internal Medicine; Admitting Provider Internal Medicine; Emergency Provider Student in an Organized Health Care Education/Training Program; PCP Family Medicine; Referring Provider Student in an Organized Health Care Education/Training Program; Visit Provider Internal Medicine
DX: J18.9 Pneumonia, unspecified organism (principal); J96.01 Acute respiratory failure with hypoxia; E87.1 Hypo-osmolality and hyponatremia; R74.01 Elevation of levels of liver transaminase levels; E86.0 Dehydration; E03.9 Hypothyroidism, unspecified; F32.A Depression, unspecified; Z79.890 Hormone replacement therapy
CPT/HCPCS: 0241U; 36415; 36600; 71045; 71275; 74177; 80048; 80053; 81001; 82550; 82805; 83605; 83690; 83735; 84484; 85007; 85025; 87040; 87070; 87205; 87633; 93005; 93010; 94618; 94667; 94762; 96361; 96365; 96375; 99285; J0696; J1644; J1938; J2405; J2543; J2919; Q9967